=== PATIENT | female | born 1995 | race Caucasian/White ===

== ENCOUNTER → 2018-01-20 | Outpatient (CLI) | payer BC, OTHER ==
--- NOTE | 2018-01-20 09:36 | US ---
EXAMINATION TYPE: US pelvic complete DATE OF EXAM: 01/20/2018 COMPARISON: NONE CLINICAL HISTORY: 22-year-old female R31.9 Hematuria. Intermittent pelvic cramping x couple months, h istory of kidney stones, history of ovarian cysts, on control, 0 TECHNIQUE: Transabdominal sonographic images of the pelvis were acquired. Date of LMP: Unknown Findings: Uterus: Anteverted measuring 6.4 x 2.7 x 3.4 cm. Somewhat bulky, rounded appearance to the cervix/low er uterine segment. Endometrial Stripe: 0.4 cm Right Ovary: 2.4 x 1.5 x 2.2 cm Left Ovary: 2.7 x 1.6 x 2.7 cm Normal size ovaries with follicular change. No evident adnexal abnormality or cul-de-sac free fluid. IMPRESSION: 1. Somewhat bulky, rounded appearance to the cervix/lower uterine segment on transabdominal scanning. Consider follow-up transvaginal scanning for more detailed assessment of the cervix. Alternatively, consider direct visualization and Pap smear. 2. Otherwise, no specific abnormality seen.
--- NOTE | 2018-01-20 10:39 | US ---
EXAMINATION TYPE: US abdomen complete DATE OF EXAM: 01/20/2018 COMPARISON: NONE CLINICAL HISTORY: 22-year-old female R31.9 Hematuria. Hematuria, intermittent pelvic cramping x coupl e months, history of kidney stones Technique: Multiple sonographic images of the abdomen are obtained. FINDINGS: Liver Length: 13.2 cm Gallbladder Wall: 0.2 cm CBD: 0.4 cm Spleen: 9.5 cm Right Kidney: 10.0 x 5.3 x 4.3 cm Left Kidney: 9.6 x 5.6 x 4.9 cm Pancreas: Only a small portion of the pancreatic neck is seen and shows no gross anomaly. Remainder suboptimally visualized secondary to shadowing from bowel gas. Liver: Normal size with homogeneous echotexture. No focal lesion. Gallbladder: wnl Evidence for sonographic Anne's sign: no CBD: wnl Spleen: visualized portions wnl, limited by overlying bowel gas Right Kidney: multiple tiny echogenic foci scattered throughout measuring up to 4 mm. No hydroneph rosis. Left Kidney: multiple tiny echogenic foci scattered throughout measuring up to 4 mm. No hydronephro sis. Upper IVC: wnl Abd Aorta: wnl IMPRESSION: 1. Suboptimal visualization of the pancreas. 2. Scattered echogenic foci within both kidneys could represent tiny nonobstructive calculi. Prominen t vascular reflectors are also possible. No hydronephrosis.
== END | disposition home or self-care (01) ==
LOC: RADUSWWP 08:03
PROVIDERS: ATTEND Pediatrics
DX: R93.421 Abnormal radiologic findings on diagnostic imaging of right kidney (principal); R93.422 Abnormal radiologic findings on diagnostic imaging of left kidney; R31.9 Hematuria, unspecified
CPT/HCPCS: 76700; 76856

== ENCOUNTER 2018-12-30 11:37 | Emergency (ER) | payer BC, OTHER ==
[2018-12-30] MEDS ORDERED: SODIUM CHLORIDE 0.9% 2,000 ML IV STA (12:01)
[2018-12-30] MEDS ORDERED: ONDANSETRON 4 MG/2 ML VIAL IVP STA (12:01)
[2018-12-30 12:40] LABS: Basophils % (A) 0 %; Eosinophils % (A) 0 %; HGB 14.8 gm/dL (11.4-16.0); Lymphocytes # (A) 0.9 k/uL (1.0-4.8); Lymphocytes % (A) 8 %; MCH 29.5 pg (25.0-35.0); MCHC 34.5 g/dL (31.0-37.0); MCV 85.5 fL (80.0-100.0); Mean Platelet Volume 6.3; Monocytes # (A) 0.5 k/uL (0-1.0); Monocytes % (A) 4 %; Neutrophils # (A) 10.5 k/uL (1.3-7.7); Neutrophils % (A) 87 %; Platelet Count 296 k/uL (150-450); RBC 5.03 m/uL (3.80-5.40); RDW 13.3 % (11.5-15.5)
[2018-12-30 12:50] LABS: ALT 30 U/L (9-52); AST 28 U/L (14-36); Albumin 4.4 g/dL (3.5-5.0); Alkaline Phosphatase 42 U/L (38-126); Anion Gap 13 mmol/L; Blood Urea Nitrogen 13 mg/dL (7-17); Calcium 9.7 mg/dL (8.4-10.2); Carbon Dioxide 22 mmol/L (22-30); Chloride 104 mmol/L (98-107); Glucose 82 mg/dL (74-99); Lipase 170 U/L (23-300); Potassium 4.2 mmol/L (3.5-5.1); Sodium 139 mmol/L (137-145); Total Bilirubin 0.7 mg/dL (0.2-1.3); Total Protein 7.5 g/dL (6.3-8.2)
--- NOTE | 2018-12-30 13:51 | US ---
EXAMINATION TYPE: Transabdominal DATE OF EXAM: 03/01/18 COMPARISON: NONE CLINICAL HISTORY: Pain. vomiting, no spotting, possible dehydration. Positive hCG test. EXAM PERFORMED: Transabdominal (TA) EXAM MEASUREMENTS: GESTATIONAL AGE / DATING Dates by LMP: (9 weeks/5 days) EDC: 07/30/2019 Dates by Current Scan: ( 9 weeks/3 days) EDC: 08/01/2019 MATERNAL ANATOMY Uterus: 8.9 x 7.8 x 5.9 cm Right Ovary: 2.4 x 1.4 x 1.5 cm Left Ovary: 2.3 x 1.3 x 1.1 cm Post CDS / Adnexa: no free fluid Presence of free fluid: no Presence of corpus luteal cyst: no Presence of subchorionic bleed: no GESTATION / SURVEY CRL: 2.7 cm (9 weeks/3 days) MSD: seen not measured Yolk Sac (normal less than 6mm): 3.9mm Heart Rate: 178 bpm Rhythm: Normal IUP: Viable IUP Date of LMP: 10/23/2018, G1 Beta HcG (if available): Not available at this time Single live intrauterine gestation is confirmed as gestational sac, yolk sac, pole are identifi ed. heart rate is upper limits of normal. No free fluid is seen in pelvic cul-de-sac. Both ovaries are seen. No suspicious extraovarian adnexal masses are noted. IMPRESSION: Single live intrauterine gestation is confirmed, mean crown-rump length is 2.7 cm corresponding to 9 week 3 day old fetus.
--- NOTE | 2018-12-30 13:55 | ED ---
Nausea/Vomiting/Diarrhea HPI <Jonny Metzger - Last Filed: 12/30/18 15:44> - General Source: patient, RN notes reviewed Mode of arrival: ambulatory Limitations: no limitations <Crow Benitez - Last Filed: 12/30/18 15:46> - General Chief complaint: Nausea/Vomiting/Diarrhea Stated complaint: 9 1/2 WEEKS , NAUSEA, VOMITING Time Seen by Provider: 12/30/18 11:48 - History of Present Illness Initial comments: 23-year-old female presents emergency Department with chief complaint of nausea vomiting in . Patient states she's approximately 9 weeks , A0. Patient states that she is scheduled to see Dr. Ko She did see the nurse initially and has had ongoing nausea vomiting given Zofran but states that the last 2 days have been worse. She states she feels dehydrated. Denies any vaginal bleeding or vaginal discharge. Denies any abdominal pain. She's had no prior ultrasound with did show intrauterine . (Crow Benitez) - Related Data Home Medications Medication Instructions Recorded Confirmed Loratadine [Claritin] 10 mg PO DAILY 12/30/18 12/30/18 Ondansetron [Zofran] 4 mg PO Q8H PRN 12/30/18 12/30/18 Pnv,Calcium 72/Iron/Folic Acid 1 tab PO DAILY 12/30/18 12/30/18 [ Plus Tablet] Allergies Allergy/AdvReac Type Severity Reaction Status Date / Time venlafaxine [From Effexor] AdvReac dizziness Verified 12/30/18 11:57 Review of Systems ROS Other: All systems not noted in ROS Statement are negative. <Jonny Metzger - Last Filed: 12/30/18 15:44> ROS Other: All systems not noted in ROS Statement are negative. <Crow Benitez - Last Filed: 12/30/18 15:46> ROS Statement: Those systems with pertinent positive or pertinent negative responses have been documented in the HPI. Past Medical History Past Medical History: No Reported History History of Any Multi-Drug Resistant Organisms: None Reported Past Surgical History: No Surgical Hx Reported Past Psychological History: No Psychological Hx Reported Smoking Status: Never smoker Past Alcohol Use History: Rare Past Drug Use History: None Reported <Crow Benitez - Last Filed: 12/30/18 15:46> General Exam Limitations: no limitations General appearance: alert, in no apparent distress Head exam: Present: atraumatic, normocephalic, normal inspection Eye exam: Present: normal appearance, PERRL, EOMI. Absent: scleral icterus, conjunctival injection, periorbital swelling ENT exam: Present: normal exam, normal oropharynx, mucous membranes moist Neck exam: Present: normal inspection, full ROM. Absent: tenderness, meningismus, lymphadenopathy Respiratory exam: Present: normal lung sounds bilaterally. Absent: respiratory distress, wheezes, rales, rhonchi, stridor Cardiovascular Exam: Present: regular rate, normal rhythm, normal heart sounds. Absent: systolic murmur, diastolic murmur, rubs, gallop, clicks GI/Abdominal exam: Present: soft, tenderness, normal bowel sounds. Absent: distended, guarding, rebound, rigid Back exam: Absent: CVA tenderness (R), CVA tenderness (L) Neurological exam: Present: alert, oriented X3, CN II-XII intact Skin exam: Present: warm, dry, intact, normal color. Absent: rash <Crow Benitez - Last Filed: 12/30/18 15:46> Course <Jonny Metzger - Last Filed: 12/30/18 15:44> <Crow Benitez - Last Filed: 12/30/18 15:46> Vital Signs 12/30/18 12/30/18 12/30/18 11:52 14:25 15:40 Temperature 97.8 F Pulse Rate 89 82 79 Respiratory 18 16 16 Rate Blood Pressure 113/79 108/59 100/64 O2 Sat by Pulse 97 100 99 Oximetry - Reevaluation(s) Reevaluation #1: 12/30/18 15:44 Patient reevaluated by myself, Dr. Metzger. Patient resting comfortably in bed. Patient has been hydrated. Patient is able to tolerate crackers in the emergency department. (Jonny Metzger) Medical Decision Making - Lab Data Result diagrams: 12/30/18 12:23 12/30/18 12:23 <Jonny Metzger - Last Filed: 12/30/18 15:44> - Lab Data Result diagrams: 12/30/18 12:23 12/30/18 12:23 <Crow Benitez - Last Filed: 12/30/18 15:46> - Medical Decision Making 23-year-old female presented for nausea vomiting early . Patient was hydrated, given antiemetics. She has tolerated oral intake will be discharged with close follow-up with her GENERALIST. (Crow Benitez) - Lab Data Lab Results 12/30/18 12/30/18 12/30/18 Range/Units 12:23 12:23 12:23 WBC 12.0 H (3.8-10.6) k/uL RBC 5.03 (3.80-5.40) m/uL Hgb 14.8 (11.4-16.0) gm/dL Hct 43.0 (34.0-46.0) % MCV 85.5 (80.0-100.0) fL MCH 29.5 (25.0-35.0) pg MCHC 34.5 (31.0-37.0) g/dL RDW 13.3 (11.5-15.5) % Plt Count 296 (150-450) k/uL Neutrophils % 87 % Lymphocytes % 8 % Monocytes % 4 % Eosinophils % 0 % Basophils % 0 % Neutrophils # 10.5 H (1.3-7.7) k/uL Lymphocytes # 0.9 L (1.0-4.8) k/uL Monocytes # 0.5 (0-1.0) k/uL Eosinophils # 0.0 (0-0.7) k/uL Basophils # 0.0 (0-0.2) k/uL Sodium 139 (137-145) mmol/L Potassium 4.2 (3.5-5.1) mmol/L Chloride 104 (98-107) mmol/L Carbon Dioxide 22 (22-30) mmol/L Anion Gap 13 mmol/L BUN 13 (7-17) mg/dL Creatinine 0.45 L (0.52-1.04) mg/dL Est GFR (CKD-EPI)AfAm >90 (>60 ml/min/1.73 sqM) Est GFR (CKD-EPI)NonAf >90 (>60 ml/min/1.73 sqM) Glucose 82 (74-99) mg/dL Calcium 9.7 (8.4-10.2) mg/dL Total Bilirubin 0.7 (0.2-1.3) mg/dL AST 28 (14-36) U/L ALT 30 (9-52) U/L Alkaline Phosphatase 42 (38-126) U/L Total Protein 7.5 (6.3-8.2) g/dL Albumin 4.4 (3.5-5.0) g/dL Lipase 170 (23-300) U/L Urine Color Urine Appearance (Clear) Urine pH (5.0-8.0) Ur Specific [place] (1.001-1.035) Urine Protein (Negative) Urine Glucose (UA) (Negative) Urine Ketones (Negative) Urine Blood (Negative) Urine Nitrite (Negative) Urine Bilirubin (Negative) Urine Urobilinogen (<2.0) mg/dL Ur Leukocyte Esterase (Negative) Urine RBC (0-5) /hpf Urine WBC (0-5) /hpf Ur Squamous Epith Cells (0-4) /hpf Amorphous Sediment (None) /hpf Urine Bacteria (None) /hpf Hyaline Casts (0-2) /lpf Urine Mucus (None) /hpf Urine HCG, Qual (Not Detectd) Blood Type B Negative Blood Type Recheck No 12/30/18 12/30/18 Range/Units 13:43 13:43 WBC (3.8-10.6) k/uL RBC (3.80-5.40) m/uL Hgb (11.4-16.0) gm/dL Hct (34.0-46.0) % MCV (80.0-100.0) fL MCH (25.0-35.0) pg MCHC (31.0-37.0) g/dL RDW (11.5-15.5) % Plt Count (150-450) k/uL Neutrophils % % Lymphocytes % % Monocytes % % Eosinophils % % Basophils % % Neutrophils # (1.3-7.7) k/uL Lymphocytes # (1.0-4.8) k/uL Monocytes # (0-1.0) k/uL Eosinophils # (0-0.7) k/uL Basophils # (0-0.2) k/uL Sodium (137-145) mmol/L Potassium (3.5-5.1) mmol/L Chloride (98-107) mmol/L Carbon Dioxide (22-30) mmol/L Anion Gap mmol/L BUN (7-17) mg/dL Creatinine (0.52-1.04) mg/dL Est GFR (CKD-EPI)AfAm (>60 ml/min/1.73 sqM) Est GFR (CKD-EPI)NonAf (>60 ml/min/1.73 sqM) Glucose (74-99) mg/dL Calcium (8.4-10.2) mg/dL Total Bilirubin (0.2-1.3) mg/dL AST (14-36) U/L ALT (9-52) U/L Alkaline Phosphatase (38-126) U/L Total Protein (6.3-8.2) g/dL Albumin (3.5-5.0) g/dL Lipase (23-300) U/L Urine Color Yellow Urine Appearance Cloudy H (Clear) Urine pH 6.0 (5.0-8.0) Ur Specific [place] 1.028 (1.001-1.035) Urine Protein 1+ H (Negative) Urine Glucose (UA) Negative (Negative) Urine Ketones 4+ H (Negative) Urine Blood Negative (Negative) Urine Nitrite Negative (Negative) Urine Bilirubin Negative (Negative) Urine Urobilinogen <2.0 (<2.0) mg/dL Ur Leukocyte Esterase Small H (Negative) Urine RBC 2 (0-5) /hpf Urine WBC 20 H (0-5) /hpf Ur Squamous Epith Cells 1 (0-4) /hpf Amorphous Sediment Occasional H (None) /hpf Urine Bacteria Occasional H (None) /hpf Hyaline Casts 5 H (0-2) /lpf Urine Mucus Many H (None) /hpf Urine HCG, Qual Detected (Not Detectd) Blood Type Blood Type Recheck Disposition <Jonny Metzger - Last Filed: 12/30/18 15:44> Is patient prescribed a controlled substance at d/c from ED?: No Time of Disposition: 15:46 <Crow Benitez - Last Filed: 12/30/18 15:46> Clinical Impression: Dehydration, Hyperemesis gravidarum Disposition: HOME SELF-CARE Condition: Stable Instructions (If sedation given, give patient instructions): Acute Nausea and Vomiting (ED) Additional Instructions: Please return to the Emergency Department if symptoms worsen or any other concerns. Referrals: Angelo Gilbert MD [Primary Care Provider] - 1-2 days
[2018-12-30] MEDS ORDERED: METOCLOPRAMIDE 5 MG/ML 2 ML VIAL IVP STA (14:16)
[2018-12-30] MEDS ORDERED: diphenhydrAMINE 50 MG/ML 1 ML VIAL IVP STA (14:16)
[2018-12-30 14:27] VITALS: RESP 16
[2018-12-30 14:38] LABS: Amorphous Sediment,Urine Occasional /hpf; Appearance,Urine Cloudy (Clear); Bacteria,Urine Occasional /hpf; Bilirubin,Urine Negative (Negative); Blood,Urine Negative (Negative); Color,Urine Yellow; Glucose,Urine (UA) Negative (Negative); Hyaline Casts,Urine 5 /lpf (0-2); Ketones,Urine 4+ (Negative); Leukocyte Esterase,Urine Small (Negative); Mucus,Urine Many /hpf; Nitrite,Urine Negative (Negative); Protein,Urine 1+ (Negative); RBC,Urine 2 /hpf (0-5); Specific Gravity,Urine 1.028 (1.001-1.035); Squamous Epithelial Cell,Urine 1 /hpf (0-4); Urobilinogen,Urine <2.0 mg/dL (<2.0); WBC,Urine 20 /hpf (0-5)
[2018-12-30] MEDS ORDERED: SODIUM CHLORIDE 0.9% 1,000 ML IV ONE (14:56)
[2018-12-30 17:12] VITALS: BP 103/66; PULSE 90; TEMP 98.9
== END 2018-12-30 17:20 | disposition home or self-care (01) ==
LOC: EC 11:37
DX: O21.1 Hyperemesis gravidarum with metabolic disturbance (principal); Z3A.09 9 weeks gestation of pregnancy; Z79.899 Other long term (current) drug therapy; Z88.8 Allergy status to other drugs, medicaments and biological substances
CPT/HCPCS: 36415; 86900; 86901; 80053; 83690; 85025; 81001; 81025; 87086; 76801; 99284; 96365; 96375 ×3; 96361 ×2; J1200; J2765; J2405; J0696

== ENCOUNTER 2018-12-31 18:09 | Emergency (ER) | payer BC, OTHER ==
[2018-12-31 18:20] VITALS: TEMP 98.5
[2018-12-31] MEDS ORDERED: METOCLOPRAMIDE 5 MG/ML 2 ML VIAL IVP STA (18:40)
[2018-12-31] MEDS ORDERED: SODIUM CHLORIDE 0.9% 2,000 ML IV STA (18:40)
[2018-12-31] MEDS ORDERED: SODIUM CHLORIDE 0.9% 1,000 ML IV STA (18:40)
[2018-12-31] MEDS ORDERED: diphenhydrAMINE 50 MG/ML 1 ML VIAL IVP STA (18:40)
--- NOTE | 2018-12-31 19:17 | ED ---
Nausea/Vomiting/Diarrhea HPI - General Chief complaint: Nausea/Vomiting/Diarrhea Stated complaint: 10 WEEKS PREG AND NAUSEA Time Seen by Provider: 12/31/18 18:40 Source: patient, RN notes reviewed Mode of arrival: ambulatory Limitations: no limitations - History of Present Illness Initial comments: 23-year-old female presents emergency department for nausea vomiting and urinary tract infection. Patient was seen here in emergency department yesterday was found be severely dehydrated. She states she is able to go home and eat but states that she started vomiting a few hours after. She has not been unable to keep anything down today. Patient does not clinic fevers or chills. Patient states she is approximately 10 weeks . Patient denies any vaginal bleeding or vaginal discharge. Patient's PHOTOGRAPHY INTERN is Dr. Ko. Patient has not had an official appointment with her that she's had an appointment with the nurse. Patient was given Zofran at PHOTOGRAPHY INTERN office. Patient states that she has diffuse burning of her throat. - Related Data Home Medications Medication Instructions Recorded Confirmed Loratadine [Claritin] 10 mg PO DAILY 12/30/18 12/30/18 Ondansetron [Zofran] 4 mg PO Q8H PRN 12/30/18 12/30/18 Pnv,Calcium 72/Iron/Folic Acid 1 tab PO DAILY 12/30/18 12/30/18 [ Plus Tablet] Previous Rx's Medication Instructions Recorded Metoclopramide [Reglan] 10 mg PO TID PRN #15 tab 12/31/18 Nitrofurantoin Monohyd/M-Cryst 100 mg PO Q12HR #10 cap 12/31/18 [Macrobid] Promethazine HCl [Phenergan] 50 mg RC Q8HR #10 supp.rect 12/31/18 Allergies Allergy/AdvReac Type Severity Reaction Status Date / Time venlafaxine [From Effexor] AdvReac dizziness Verified 12/31/18 18:16 Review of Systems ROS Statement: Those systems with pertinent positive or pertinent negative responses have been documented in the HPI. ROS Other: All systems not noted in ROS Statement are negative. Past Medical History Past Medical History: No Reported History History of Any Multi-Drug Resistant Organisms: None Reported Past Surgical History: No Surgical Hx Reported Additional Past Surgical History / Comment(s): oral surgery Past Psychological History: Anxiety, Depression Smoking Status: Never smoker Past Alcohol Use History: None Reported Past Drug Use History: None Reported General Exam Limitations: no limitations General appearance: alert, in no apparent distress Head exam: Present: atraumatic, normocephalic, normal inspection Neck exam: Present: normal inspection. Absent: tenderness, meningismus, lymphadenopathy Respiratory exam: Present: normal lung sounds bilaterally. Absent: respiratory distress, wheezes, rales, rhonchi, stridor Cardiovascular Exam: Present: regular rate, normal rhythm, normal heart sounds. Absent: systolic murmur, diastolic murmur, rubs, gallop, clicks GI/Abdominal exam: Present: soft, normal bowel sounds. Absent: distended, tenderness, guarding, rebound, rigid Back exam: Absent: CVA tenderness (R), CVA tenderness (L) Skin exam: Present: warm, dry, intact, normal color. Absent: rash Course Vital Signs 12/31/18 12/31/18 18:16 20:52 Temperature 98.5 F Pulse Rate 98 77 Respiratory 18 16 Rate Blood Pressure 124/85 104/65 O2 Sat by Pulse 99 99 Oximetry Medical Decision Making - Medical Decision Making 31-year-old female presents emergency department for nausea and vomiting in . Patient has questional urinary tract infection. Case discussed with on-call PHOTOGRAPHY INTERN Dr. Hector recommends patient be discharged with Tigan suppositories. Patient was seen yesterday with 4+ ketones, patient did have 3 L of fluid yesterday. Patient has 3+ ketones today was given 3 L of fluid. Patient still remains to be nauseated but agrees to go home under Dr. Hector's plan. I did discuss with pharmacy about Tigan suppositories. No availability of this. Patient we given oral Reglan and Phenergan suppositories - Lab Data Result diagrams: 12/31/18 19:00 12/31/18 19:00 Lab Results 12/31/18 12/31/18 12/31/18 Range/Units 19:00 19:00 19:02 WBC 9.5 (3.8-10.6) k/uL RBC 4.79 (3.80-5.40) m/uL Hgb 13.9 (11.4-16.0) gm/dL Hct 41.1 (34.0-46.0) % MCV 85.9 (80.0-100.0) fL MCH 29.0 (25.0-35.0) pg MCHC 33.8 (31.0-37.0) g/dL RDW 13.4 (11.5-15.5) % Plt Count 280 (150-450) k/uL Neutrophils % 77 % Lymphocytes % 16 % Monocytes % 6 % Eosinophils % 1 % Basophils % 0 % Neutrophils # 7.3 (1.3-7.7) k/uL Lymphocytes # 1.5 (1.0-4.8) k/uL Monocytes # 0.5 (0-1.0) k/uL Eosinophils # 0.1 (0-0.7) k/uL Basophils # 0.0 (0-0.2) k/uL Sodium 138 (137-145) mmol/L Potassium 3.8 (3.5-5.1) mmol/L Chloride 106 (98-107) mmol/L Carbon Dioxide 22 (22-30) mmol/L Anion Gap 10 mmol/L BUN 4 L (7-17) mg/dL Creatinine 0.50 L (0.52-1.04) mg/dL Est GFR (CKD-EPI)AfAm >90 (>60 ml/min/1.73 sqM) Est GFR (CKD-EPI)NonAf >90 (>60 ml/min/1.73 sqM) Glucose 77 (74-99) mg/dL Calcium 9.4 (8.4-10.2) mg/dL Total Bilirubin 0.7 (0.2-1.3) mg/dL AST 22 (14-36) U/L ALT 30 (9-52) U/L Alkaline Phosphatase 37 L (38-126) U/L Total Protein 7.3 (6.3-8.2) g/dL Albumin 4.4 (3.5-5.0) g/dL Lipase 173 (23-300) U/L Urine Color Yellow Urine Appearance Cloudy H (Clear) Urine pH 5.5 (5.0-8.0) Ur Specific [place] 1.012 (1.001-1.035) Urine Protein Negative (Negative) Urine Glucose (UA) Negative (Negative) Urine Ketones 3+ H (Negative) Urine Blood Trace H (Negative) Urine Nitrite Negative (Negative) Urine Bilirubin Negative (Negative) Urine Urobilinogen <2.0 (<2.0) mg/dL Ur Leukocyte Esterase Large H (Negative) Urine RBC 6 H (0-5) /hpf Urine WBC 13 H (0-5) /hpf Ur Squamous Epith Cells 5 H (0-4) /hpf Urine Bacteria Many H (None) /hpf Urine Mucus Occasional H (None) /hpf Disposition Clinical Impression: Dehydration, Hyperemesis gravidarum, UTI (urinary tract infection) Disposition: HOME SELF-CARE Condition: Stable Instructions (If sedation given, give patient instructions): Hyperemesis Gravidarum (ED) Additional Instructions: Please return to the Emergency Department if symptoms worsen or any other concerns. Prescriptions: Metoclopramide [Reglan] 10 mg PO TID PRN #15 tab PRN Reason: GERD Nitrofurantoin Monohyd/M-Cryst [Macrobid] 100 mg PO Q12HR #10 cap Promethazine HCl [Phenergan] 50 mg RC Q8HR #10 supp.rect Is patient prescribed a controlled substance at d/c from ED?: No Referrals: Angelo Gilbert MD [Primary Care Provider] - 1-2 days Time of Disposition: 21:16
[2018-12-31 19:39] LABS: Basophils % (A) 0 %; Eosinophils # (A) 0.1 k/uL (0-0.7); Eosinophils % (A) 1 %; HCT 41.1 % (34.0-46.0); HGB 13.9 gm/dL (11.4-16.0); Lymphocytes # (A) 1.5 k/uL (1.0-4.8); Lymphocytes % (A) 16 %; MCHC 33.8 g/dL (31.0-37.0); MCV 85.9 fL (80.0-100.0); Mean Platelet Volume 6.9; Monocytes # (A) 0.5 k/uL (0-1.0); Monocytes % (A) 6 %; Neutrophils # (A) 7.3 k/uL (1.3-7.7); Neutrophils % (A) 77 %; Platelet Count 280 k/uL (150-450); RBC 4.79 m/uL (3.80-5.40); RDW 13.4 % (11.5-15.5); WBC 9.5 k/uL (3.8-10.6)
[2018-12-31 19:40] LABS: Appearance,Urine Cloudy (Clear); Bacteria,Urine Many /hpf; Bilirubin,Urine Negative (Negative); Blood,Urine Trace (Negative); Color,Urine Yellow; Glucose,Urine (UA) Negative (Negative); Ketones,Urine 3+ (Negative); Leukocyte Esterase,Urine Large (Negative); Mucus,Urine Occasional /hpf; Nitrite,Urine Negative (Negative); PH, Urine 5.5 (5.0-8.0); Protein,Urine Negative (Negative); RBC,Urine 6 /hpf (0-5); Specific Gravity,Urine 1.012 (1.001-1.035); Squamous Epithelial Cell,Urine 5 /hpf (0-4); Urobilinogen,Urine <2.0 mg/dL (<2.0); WBC,Urine 13 /hpf (0-5)
[2018-12-31 19:43] LABS: ALT 30 U/L (9-52); AST 22 U/L (14-36); Albumin 4.4 g/dL (3.5-5.0); Alkaline Phosphatase 37 U/L (38-126); Anion Gap 10 mmol/L; Blood Urea Nitrogen 4 mg/dL (7-17); Calcium 9.4 mg/dL (8.4-10.2); Carbon Dioxide 22 mmol/L (22-30); Chloride 106 mmol/L (98-107); Glucose 77 mg/dL (74-99); Lipase 173 U/L (23-300); Potassium 3.8 mmol/L (3.5-5.1); Sodium 138 mmol/L (137-145); Total Bilirubin 0.7 mg/dL (0.2-1.3); Total Protein 7.3 g/dL (6.3-8.2)
[2018-12-31 20:54] VITALS: RESP 16
[2018-12-31] MEDS ORDERED: ONDANSETRON 4 MG/2 ML VIAL IVP STA (21:02)
[2018-12-31] MEDS ORDERED: SODIUM CHLORIDE 0.9% 1,000 ML IV ONE (21:03)
[2018-12-31 22:22] VITALS: BP 109/70; PULSE 84
== END 2018-12-31 22:18 | disposition home or self-care (01) ==
LOC: EC 18:09
DX: O23.41 Unspecified infection of urinary tract in pregnancy, first trimester (principal); O21.1 Hyperemesis gravidarum with metabolic disturbance; Z79.899 Other long term (current) drug therapy; Z88.8 Allergy status to other drugs, medicaments and biological substances; Z3A.10 10 weeks gestation of pregnancy
CPT/HCPCS: 36415; 80053; 83690; 85025; 81001; 99284; 96365; 96375 ×3; 96361 ×2; J1200; J2765; J2405; J0696

== ENCOUNTER 2019-01-05 15:10 | Emergency (ER) | payer BC, OTHER ==
[2019-01-05 15:23] VITALS: RESP 20; TEMP 97.9
[2019-01-05] MEDS ORDERED: METOCLOPRAMIDE 5 MG/ML 2 ML VIAL IVP STA ×2 (15:46→17:44)
[2019-01-05] MEDS ORDERED: SODIUM CHLORIDE 0.9% 2,000 ML IV STA (15:46)
[2019-01-05] MEDS ORDERED: diphenhydrAMINE 50 MG/ML 1 ML VIAL IVP STA (15:46)
--- NOTE | 2019-01-05 15:47 | ED ---
General Adult HPI <Kelton Joel - Last Filed: 01/05/19 17:41> - General Source: patient, RN notes reviewed Mode of arrival: ambulatory Limitations: no limitations <Deven Robles - Last Filed: 01/05/19 20:37> - General Chief complaint: Nausea/Vomiting/Diarrhea Stated complaint: nausea/UTI/10wks preg Time Seen by Provider: 01/05/19 15:30 - History of Present Illness Initial comments: 23-year-old female currently 10 weeks presents to the emergency department for a chief complaint of nausea and vomiting. Patient states she has vomiting multiple times today. Patient presented to the emergency department 5 days ago and received oral medications as well as suppository for this. Patient states that for the past few days she has felt much better. She states she was keeping down solids and liquids. However last night patient began throwing up again. Patient has thrown up multiple times today. Patient was recently diagnosed with a urinary tract infection and is unable to keep down antibiotic. 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 Patient sees Dr. Ko. patient did attempt to contact her today but was unsuccessful. patient denies any vaginal bleeding Or pain. Patient has no other complaints at this time including shortness of breath, chest pain, abdominal pain, headache, or visual changes. (Deven Robles) - Related Data Home Medications Medication Instructions Recorded Confirmed Loratadine [Claritin] 10 mg PO DAILY 12/30/18 01/05/19 Ondansetron [Zofran] 4 mg PO Q8H PRN 12/30/18 01/05/19 Pnv,Calcium 72/Iron/Folic Acid 1 tab PO DAILY 12/30/18 01/05/19 [ Plus Tablet] Previous Rx's Medication Instructions Recorded Metoclopramide [Reglan] 10 mg PO TID PRN #15 tab 12/31/18 Nitrofurantoin Monohyd/M-Cryst 100 mg PO Q12HR #10 cap 12/31/18 [Macrobid] Metoclopramide HCl [Reglan] 10 mg PO Q6H #15 tablet 01/05/19 Allergies Allergy/AdvReac Type Severity Reaction Status Date / Time venlafaxine [From Effexor] AdvReac dizziness Verified 01/05/19 16:08 Review of Systems ROS Other: All systems not noted in ROS Statement are negative. <Kelton Joel - Last Filed: 01/05/19 17:41> ROS Other: All systems not noted in ROS Statement are negative. <Deven Robles - Last Filed: 01/05/19 20:37> ROS Statement: Those systems with pertinent positive or pertinent negative responses have been documented in the HPI. Past Medical History Past Medical History: No Reported History History of Any Multi-Drug Resistant Organisms: None Reported Past Surgical History: No Surgical Hx Reported Additional Past Surgical History / Comment(s): oral surgery Past Psychological History: Anxiety, Depression Smoking Status: Never smoker Past Alcohol Use History: None Reported Past Drug Use History: None Reported <Deven Robles - Last Filed: 01/05/19 20:37> General Exam Limitations: no limitations General appearance: alert, in no apparent distress Head exam: Present: atraumatic, normocephalic, normal inspection Eye exam: Present: normal appearance, PERRL, EOMI. Absent: scleral icterus, conjunctival injection, periorbital swelling ENT exam: Present: normal exam, mucous membranes moist Neck exam: Present: normal inspection, full ROM. Absent: tenderness, meningismus, lymphadenopathy Respiratory exam: Present: normal lung sounds bilaterally. Absent: respiratory distress, wheezes, rales, rhonchi, stridor Cardiovascular Exam: Present: regular rate, normal rhythm, normal heart sounds. Absent: systolic murmur, diastolic murmur, rubs, gallop, clicks GI/Abdominal exam: Present: soft, normal bowel sounds. Absent: distended, tenderness, guarding, rebound, rigid Neurological exam: Present: alert, oriented X3, CN II-XII intact Psychiatric exam: Present: normal affect, normal mood <Deven Robles P - Last Filed: 01/05/19 20:37> Course <Kelton Joel - Last Filed: 01/05/19 17:41> <Deven Robles P - Last Filed: 01/05/19 20:37> Vital Signs 01/05/19 01/05/19 01/05/19 15:19 17:22 17:55 Temperature 97.9 F 97.9 F Pulse Rate 101 H 89 Respiratory 20 20 Rate Blood Pressure 138/86 118/72 O2 Sat by Pulse 96 99 Oximetry - Reevaluation(s) Reevaluation #1: 01/05/19 17:41 JOSH supervision: I proceeded [id number] evaluation the patient he currently is with her first child this is her third visit last week for nausea vomiting she was doing well yesterday she is feeling better now after IV Reglan. She'll be discharged on increasing frequency of dosing this is after discussion with her and at her request. Patient be following up as needed (Kelton Joel) Medical Decision Making - Lab Data Result diagrams: 01/05/19 15:32 01/05/19 15:32 <Kelton Joel - Last Filed: 01/05/19 17:41> - Lab Data Result diagrams: 01/05/19 15:32 01/05/19 15:32 <Deven Robles - Last Filed: 01/05/19 20:37> - Medical Decision Making 23-year-old female presents to the emergency department for a chief complaint of nausea and vomiting. Patient is 10 weeks . Patient is a female. Patient was given medications here at the emergency department 5 days ago. She states these worked for the past 4 days however last night she began vomiting again and has vomited multiple times per day. Urinalysis does show 4+ ketones, patient given 2 L of fluids. However kidney function and other labs are within normal limits. Culture from previous urinalysis was negative. Patient is well-appearing on exam. She is much improved after IV administration. She has not vomited while in the emergency department. Patient is currently on oral Reglan. Discussed increasing dose to 4 times per day. Patient will try this. However she does agree to return if she has continued vomiting and is unable to keep down liquids. Dr. Joel also saw the patient. (Deven Robles) - Lab Data Lab Results 01/05/19 01/05/19 01/05/19 Range/Units 15:32 15:32 15:32 WBC 12.0 H (3.8-10.6) k/uL RBC 5.08 (3.80-5.40) m/uL Hgb 14.6 (11.4-16.0) gm/dL Hct 44.0 (34.0-46.0) % MCV 86.5 (80.0-100.0) fL MCH 28.7 (25.0-35.0) pg MCHC 33.2 (31.0-37.0) g/dL RDW 13.5 (11.5-15.5) % Plt Count 286 (150-450) k/uL Neutrophils % 81 % Lymphocytes % 13 % Monocytes % 4 % Eosinophils % 1 % Basophils % 0 % Neutrophils # 9.8 H (1.3-7.7) k/uL Lymphocytes # 1.6 (1.0-4.8) k/uL Monocytes # 0.5 (0-1.0) k/uL Eosinophils # 0.1 (0-0.7) k/uL Basophils # 0.0 (0-0.2) k/uL Sodium 137 (137-145) mmol/L Potassium 4.0 (3.5-5.1) mmol/L Chloride 103 (98-107) mmol/L Carbon Dioxide 22 (22-30) mmol/L Anion Gap 12 mmol/L BUN 10 (7-17) mg/dL Creatinine 0.47 L (0.52-1.04) mg/dL Est GFR (CKD-EPI)AfAm >90 (>60 ml/min/1.73 sqM) Est GFR (CKD-EPI)NonAf >90 (>60 ml/min/1.73 sqM) Glucose 77 (74-99) mg/dL Calcium 9.9 (8.4-10.2) mg/dL Total Bilirubin 0.6 (0.2-1.3) mg/dL AST 27 (14-36) U/L ALT 28 (9-52) U/L Alkaline Phosphatase 42 (38-126) U/L Total Protein 7.8 (6.3-8.2) g/dL Albumin 4.8 (3.5-5.0) g/dL Amylase 87 (30-110) U/L Lipase 222 (23-300) U/L HCG, Quant 979326.0 mIU/mL Urine Color Yellow Urine Appearance Cloudy H (Clear) Urine pH 5.5 (5.0-8.0) Ur Specific [place] 1.025 (1.001-1.035) Urine Protein Trace H (Negative) Urine Glucose (UA) Negative (Negative) Urine Ketones 4+ H (Negative) Urine Blood Small H (Negative) Urine Nitrite Negative (Negative) Urine Bilirubin Negative (Negative) Urine Urobilinogen <2.0 (<2.0) mg/dL Ur Leukocyte Esterase Trace H (Negative) Urine RBC 6 H (0-5) /hpf Urine WBC 5 (0-5) /hpf Ur Squamous Epith Cells 8 H (0-4) /hpf Urine Bacteria Moderate H (None) /hpf Urine Mucus Many H (None) /hpf Disposition <Kelton Joel - Last Filed: 01/05/19 17:41> Is patient prescribed a controlled substance at d/c from ED?: No Time of Disposition: 17:42 <Deven Robles - Last Filed: 01/05/19 20:37> Clinical Impression: Hyperemesis gravidarum Disposition: HOME SELF-CARE Condition: Good Instructions (If sedation given, give patient instructions): Hyperemesis Gravidarum (ED) Additional Instructions: Please take Reglan as directed. 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 Follow -up with Dr. Salazar tomorrow. Return here if you have worsening symptoms. Prescriptions: Metoclopramide HCl [Reglan] 10 mg PO Q6H #15 tablet Referrals: Angelo Gilbert MD [Primary Care Provider] - 1-2 days Audrey Ko DO [Doctor of Osteopathic Medicine] - 1-2 days
[2019-01-05 16:30] LABS: Basophils % (A) 0 %; Eosinophils # (A) 0.1 k/uL (0-0.7); Eosinophils % (A) 1 %; HGB 14.6 gm/dL (11.4-16.0); Lymphocytes # (A) 1.6 k/uL (1.0-4.8); Lymphocytes % (A) 13 %; MCH 28.7 pg (25.0-35.0); MCHC 33.2 g/dL (31.0-37.0); MCV 86.5 fL (80.0-100.0); Monocytes # (A) 0.5 k/uL (0-1.0); Monocytes % (A) 4 %; Neutrophils # (A) 9.8 k/uL (1.3-7.7); Neutrophils % (A) 81 %; Platelet Count 286 k/uL (150-450); RBC 5.08 m/uL (3.80-5.40); RDW 13.5 % (11.5-15.5)
[2019-01-05 16:35] LABS: ALT 28 U/L (9-52); AST 27 U/L (14-36); Albumin 4.8 g/dL (3.5-5.0); Alkaline Phosphatase 42 U/L (38-126); Amylase 87 U/L (30-110); Anion Gap 12 mmol/L; Blood Urea Nitrogen 10 mg/dL (7-17); Calcium 9.9 mg/dL (8.4-10.2); Carbon Dioxide 22 mmol/L (22-30); Chloride 103 mmol/L (98-107); Glucose 77 mg/dL (74-99); Lipase 222 U/L (23-300); Sodium 137 mmol/L (137-145); Total Bilirubin 0.6 mg/dL (0.2-1.3); Total Protein 7.8 g/dL (6.3-8.2)
[2019-01-05 16:36] LABS: Appearance,Urine Cloudy (Clear); Bacteria,Urine Moderate /hpf; Bilirubin,Urine Negative (Negative); Blood,Urine Small (Negative); Color,Urine Yellow; Glucose,Urine (UA) Negative (Negative); Ketones,Urine 4+ (Negative); Leukocyte Esterase,Urine Trace (Negative); Mucus,Urine Many /hpf; Nitrite,Urine Negative (Negative); PH, Urine 5.5 (5.0-8.0); Protein,Urine Trace (Negative); RBC,Urine 6 /hpf (0-5); Specific Gravity,Urine 1.025 (1.001-1.035); Squamous Epithelial Cell,Urine 8 /hpf (0-4); Urobilinogen,Urine <2.0 mg/dL (<2.0); WBC,Urine 5 /hpf (0-5)
[2019-01-05 17:34] VITALS: BP 118/72; PULSE 89
== END 2019-01-05 17:58 | disposition home or self-care (01) ==
LOC: EC 15:10
DX: O21.0 Mild hyperemesis gravidarum (principal); O99.89 Other specified diseases and conditions complicating pregnancy, childbirth and the puerperium; R19.7 Diarrhea, unspecified; Z79.899 Other long term (current) drug therapy; Z88.8 Allergy status to other drugs, medicaments and biological substances; Z3A.10 10 weeks gestation of pregnancy
CPT/HCPCS: 36415; 80053; 82150; 83690; 85025; 81001; 84702; 87086; 99284; 96374; 96375; 96376; 96361; J1200; J2765

== ENCOUNTER 2019-02-13 17:54 | Emergency (ER) | payer BC, OTHER ==
[2019-02-13 18:42] VITALS: RESP 18
[2019-02-13] MEDS ORDERED: SODIUM CHLORIDE 0.9% 1,000 ML IV ONE (19:02)
[2019-02-13] MEDS ORDERED: SODIUM CHLORIDE 0.9% 1,000 ML IV SCH (19:15)
--- NOTE | 2019-02-13 19:33 | ED ---
Nausea/Vomiting/Diarrhea HPI <Nithya Anderson - Last Filed: 02/13/19 21:38> - General Source: patient, RN notes reviewed, old records reviewed Mode of arrival: ambulatory Limitations: no limitations <Jeannie Cody - Last Filed: 02/15/19 12:18> - General Chief complaint: Nausea/Vomiting/Diarrhea Stated complaint: 16wks preg, cramping Time Seen by Provider: 02/13/19 18:50 - History of Present Illness Initial comments: This is a 23-year-old female presents to return today with nausea and vomiting intermittently for the past 2 months. She is fairly 16 weeks , this patient's first . Patient follows with Dr. Salazar. Patient was told to come to emergency department stay for IV fluids for dehydration for the persistent nausea and vomiting. Patient denies any vaginal bleeding or discharge. She did have a bowel movement yesterday. (Jeannie Cody) - Related Data Home Medications Medication Instructions Recorded Confirmed Loratadine [Claritin] 10 mg PO DAILY 12/30/18 02/13/19 Ondansetron [Zofran] 8 mg PO Q8H PRN 12/30/18 02/13/19 Pnv,Calcium 72/Iron/Folic Acid 1 tab PO DAILY 12/30/18 02/13/19 [ Plus Tablet] Previous Rx's Medication Instructions Recorded Metoclopramide [Reglan] 10 mg PO TID PRN #15 tab 12/31/18 Cephalexin [Keflex] 500 mg PO BID 3 Days #14 cap 02/13/19 Allergies Allergy/AdvReac Type Severity Reaction Status Date / Time venlafaxine [From Effexor] AdvReac dizziness Verified 02/13/19 19:00 Review of Systems ROS Other: All systems not noted in ROS Statement are negative. <Nithya Anderson - Last Filed: 02/13/19 21:38> ROS Other: All systems not noted in ROS Statement are negative. <Jeannie Cody - Last Filed: 02/15/19 12:18> ROS Statement: Those systems with pertinent positive or pertinent negative responses have been documented in the HPI. Past Medical History Past Medical History: No Reported History History of Any Multi-Drug Resistant Organisms: None Reported Past Surgical History: No Surgical Hx Reported Additional Past Surgical History / Comment(s): oral surgery Past Psychological History: Anxiety, Depression Smoking Status: Never smoker Past Alcohol Use History: None Reported Past Drug Use History: None Reported <Jeannie Cody - Last Filed: 02/15/19 12:18> General Exam Limitations: no limitations <Jeannie Cody - Last Filed: 02/15/19 12:18> - General Exam Comments Initial Comments: Well-appearing 23-year-old female. No distress. General: Well appearing, well nourished, in no distress. Oriented x 3, normal mood and affect . Ambulating without difficulty. Skin: Good turgor, no rash, unusual bruising or prominent lesions Hair: Normal texture and distribution. HEENT: Head: Normocephalic, atraumatic, no visible or palpable masses, depressions, or scaring. Eyes: Visual acuity intact, conjunctiva clear, sclera non-icteric, EOM intact, PERRL. Ears: EACs clear, TMs translucent & cone of light visualized. hearing intact. Nose: No external lesions, mucosa non-inflamed, septum and turbinates normal Mouth: Mucous membranes moist, no mucosal lesions. Teeth/Gums: No obvious caries or periodontal disease. No gingival inflammation or significant resorption. Pharynx: Mucosa non-inflamed, no tonsillar hypertrophy or exudate Neck: Supple, without lesions, bruits, or adenopathy, thyroid non-enlarged and non-tender Heart: No cardiomegaly or thrills; regular rate and rhythm, no murmur or gallop Lungs: Clear to auscultation and percussion Abdomen: Bowel sounds normal, no tenderness, organomegaly, masses, or hernia Back: Spine normal without deformity or tenderness, no CVA tenderness Extremities: No amputations or deformities, cyanosis, edema or varicosities, peripheral pulses intact Musculoskeletal: Normal gait and station. No misalignment, asymmetry, crepitation, defects, tenderness, masses, effusions, decreased range of motion, instability, atrophy or abnormal strength or tone in the head, neck, spine, ribs, pelvis or extremities. Neurologic: CN 2-12 normal. Sensation to pain, touch, and proprioception normal. DTRs normal in upper and lower extremities. No pathologic reflexes. Psychiatric: Oriented X3, intact recent and remote memory, judgment and insight, normal mood and affect. (Jeannie Cody) Course <Jeannie Cody - Last Filed: 02/15/19 12:18> Vital Signs 02/13/19 02/13/19 18:39 21:53 Temperature 98.6 F 98.0 F Pulse Rate 91 93 Respiratory 18 18 Rate Blood Pressure 104/69 110/65 O2 Sat by Pulse 98 100 Oximetry - Reevaluation(s) Reevaluation #1: 02/13/19 21:10 heart tones were obtained and normal. (Jeannie Cody) Medical Decision Making - Lab Data Result diagrams: 02/13/19 19:55 02/13/19 19:55 <Nithya Anderson - Last Filed: 02/13/19 21:38> - Lab Data Result diagrams: 02/13/19 19:55 02/13/19 19:55 <Jeannie Cody - Last Filed: 02/15/19 12:18> - Medical Decision Making Well-appearing 23-year-old female currently 16 weeks , . She presents today for nausea and vomiting. Patient has no vaginal bleeding or discharge. heart tones are obtained and within normal limits. Patient has no other concerns. She is given 2 L bolus. Tolerated fluids well. Had no further vomiting. The Patient should follow-up with her PCP and CLINICAL TECHNOLOGIST. Urine sample be obtained. Culture pending. (Jeannie Cody) - Lab Data Lab Results 02/13/19 02/13/19 02/13/19 Range/Units 19:55 19:55 20:30 WBC 10.1 (3.8-10.6) k/uL RBC 4.23 (3.80-5.40) m/uL Hgb 12.9 (11.4-16.0) gm/dL Hct 37.4 (34.0-46.0) % MCV 88.3 (80.0-100.0) fL MCH 30.5 (25.0-35.0) pg MCHC 34.5 (31.0-37.0) g/dL RDW 14.0 (11.5-15.5) % Plt Count 270 (150-450) k/uL Neutrophils % 77 % Lymphocytes % 17 % Monocytes % 5 % Eosinophils % 1 % Basophils % 0 % Neutrophils # 7.7 (1.3-7.7) k/uL Lymphocytes # 1.8 (1.0-4.8) k/uL Monocytes # 0.5 (0-1.0) k/uL Eosinophils # 0.1 (0-0.7) k/uL Basophils # 0.0 (0-0.2) k/uL Sodium 136 L (137-145) mmol/L Potassium 3.8 (3.5-5.1) mmol/L Chloride 103 (98-107) mmol/L Carbon Dioxide 23 (22-30) mmol/L Anion Gap 10 mmol/L BUN 8 (7-17) mg/dL Creatinine 0.40 L (0.52-1.04) mg/dL Est GFR (CKD-EPI)AfAm >90 (>60 ml/min/1.73 sqM) Est GFR (CKD-EPI)NonAf >90 (>60 ml/min/1.73 sqM) Glucose 75 (74-99) mg/dL Calcium 9.6 (8.4-10.2) mg/dL Total Bilirubin 0.6 (0.2-1.3) mg/dL AST 26 (14-36) U/L ALT 23 (9-52) U/L Alkaline Phosphatase 43 (38-126) U/L Total Protein 6.7 (6.3-8.2) g/dL Albumin 3.9 (3.5-5.0) g/dL Urine Color Yellow Urine Appearance Clear (Clear) Urine pH 6.0 (5.0-8.0) Ur Specific [place] 1.016 (1.001-1.035) Urine Protein Trace H (Negative) Urine Glucose (UA) Negative (Negative) Urine Ketones 2+ H (Negative) Urine Blood Negative (Negative) Urine Nitrite Negative (Negative) Urine Bilirubin Negative (Negative) Urine Urobilinogen <2.0 (<2.0) mg/dL Ur Leukocyte Esterase Trace H (Negative) Urine RBC 2 (0-5) /hpf Urine WBC 8 H (0-5) /hpf Ur Squamous Epith Cells <1 (0-4) /hpf Urine Bacteria Occasional H (None) /hpf Hyaline Casts 3 H (0-2) /lpf Urine Mucus Moderate H (None) /hpf Disposition <Nithya Anderson - Last Filed: 02/13/19 21:38> Is patient prescribed a controlled substance at d/c from ED?: No When asked, does pt state using other controlled substances?: No Time of Disposition: 21:13 <Jeannie Cody - Last Filed: 02/15/19 12:18> Clinical Impression: Nausea/vomiting in , Bacteriuria during Disposition: HOME SELF-CARE Condition: Good Instructions (If sedation given, give patient instructions): Urinary Tract Infection in Women (ED), Acute Nausea and Vomiting (ED) Additional Instructions: Patient advised to follow-up with primary care provider. Return to the emergency department if any alarming signs symptoms occur. Rest, remain hyd rated. Continue to use nausea medicine as prescribed by PCP. Prescriptions: Cephalexin [Keflex] 500 mg PO BID 3 Days #14 cap Referrals: Angelo Gilbert MD [Primary Care Provider] - 1-2 days
[2019-02-13 20:14] LABS: Basophils % (A) 0 %; Eosinophils # (A) 0.1 k/uL (0-0.7); Eosinophils % (A) 1 %; HCT 37.4 % (34.0-46.0); HGB 12.9 gm/dL (11.4-16.0); Lymphocytes # (A) 1.8 k/uL (1.0-4.8); Lymphocytes % (A) 17 %; MCH 30.5 pg (25.0-35.0); MCHC 34.5 g/dL (31.0-37.0); MCV 88.3 fL (80.0-100.0); Mean Platelet Volume 6.2; Monocytes # (A) 0.5 k/uL (0-1.0); Monocytes % (A) 5 %; Neutrophils # (A) 7.7 k/uL (1.3-7.7); Neutrophils % (A) 77 %; Platelet Count 270 k/uL (150-450); RBC 4.23 m/uL (3.80-5.40); WBC 10.1 k/uL (3.8-10.6)
[2019-02-13 20:22] LABS: ALT 23 U/L (9-52); AST 26 U/L (14-36); Albumin 3.9 g/dL (3.5-5.0); Alkaline Phosphatase 43 U/L (38-126); Anion Gap 10 mmol/L; Blood Urea Nitrogen 8 mg/dL (7-17); Calcium 9.6 mg/dL (8.4-10.2); Carbon Dioxide 23 mmol/L (22-30); Chloride 103 mmol/L (98-107); Glucose 75 mg/dL (74-99); Potassium 3.8 mmol/L (3.5-5.1); Sodium 136 mmol/L (137-145); Total Bilirubin 0.6 mg/dL (0.2-1.3); Total Protein 6.7 g/dL (6.3-8.2)
[2019-02-13 21:27] LABS: Appearance,Urine Clear (Clear); Bacteria,Urine Occasional /hpf; Bilirubin,Urine Negative (Negative); Blood,Urine Negative (Negative); Color,Urine Yellow; Glucose,Urine (UA) Negative (Negative); Hyaline Casts,Urine 3 /lpf (0-2); Ketones,Urine 2+ (Negative); Leukocyte Esterase,Urine Trace (Negative); Mucus,Urine Moderate /hpf; Nitrite,Urine Negative (Negative); Protein,Urine Trace (Negative); RBC,Urine 2 /hpf (0-5); Specific Gravity,Urine 1.016 (1.001-1.035); Squamous Epithelial Cell,Urine <1 /hpf (0-4); Urobilinogen,Urine <2.0 mg/dL (<2.0); WBC,Urine 8 /hpf (0-5)
[2019-02-13 21:54] VITALS: BP 110/65; PULSE 93; TEMP 98
== END 2019-02-13 21:54 | disposition home or self-care (01) ==
LOC: EC 17:54
DX: O21.9 Vomiting of pregnancy, unspecified (principal); O99.89 Other specified diseases and conditions complicating pregnancy, childbirth and the puerperium; R82.71 Bacteriuria; Z3A.16 16 weeks gestation of pregnancy; Z79.899 Other long term (current) drug therapy; Z88.8 Allergy status to other drugs, medicaments and biological substances
CPT/HCPCS: 36415; 80053; 81001; 85025; 87086; 96360; 96361; 99284

== ENCOUNTER 2019-03-04 23:40 | Emergency (ER) | payer BC, OTHER ==
[2019-03-05 00:04] VITALS: RESP 18
[2019-03-05] MEDS ORDERED: SODIUM CHLORIDE 0.9% 1,000 ML IV STA (00:49)
[2019-03-05] MEDS ORDERED: ACETAMINOPHEN TAB 500 MG TAB PO STA (00:50)
--- NOTE | 2019-03-05 00:59 | ED ---
Abdominal Pain HPI - General Source: patient Mode of arrival: ambulatory Limitations: no limitations <Nithya Anderson - Last Filed: 03/05/19 03:02> <Natasha Montes - Last Filed: 03/05/19 07:23> - General Chief Complaint: Abdominal Pain Stated Complaint: 19 Weeks Back Pain Abd Pain Time Seen by Provider: 03/05/19 00:44 - History of Present Illness Initial Comments: 23-year-old female patient presents to the emergency department today for evaluation of right flank pain radiating into her right sided abdomen and into her right groin. Patient does report being 19 weeks . She is . She states that pain started suddenly after urinating around 10 PM. Patient states the pain is been intermittent since. She describes the pain as a sharp stabbing pain. States that she did attempt a warm bath but it seemed to make the pain somewhat worse. She has not taken any medication for her symptoms. She denies any hematuria, dysuria, urinary frequency, urinary urgency. States she has had some nausea with the pain. Denies any abnormal vaginal bleeding or discharge. Does have a history of kidney stones with states this pain is worse than her previous episodes. She denies fever or chills. Denies constipation or diarrhea. Patient denies any recent rash, shortness breath, chest pain, n umbness, tingling, dizziness, weakness, headache, visual changes, or any other complaints. (Nithya Anderson) - Related Data Home Medications Medication Instructions Recorded Confirmed Loratadine [Claritin] 10 mg PO DAILY 12/30/18 02/13/19 Ondansetron [Zofran] 8 mg PO Q8H PRN 12/30/18 02/13/19 Pnv,Calcium 72/Iron/Folic Acid 1 tab PO DAILY 12/30/18 02/13/19 [ Plus Tablet] Previous Rx's Medication Instructions Recorded Metoclopramide [Reglan] 10 mg PO TID PRN #15 tab 12/31/18 Cephalexin [Keflex] 500 mg PO BID 3 Days #14 cap 02/13/19 Cephalexin [Keflex] 500 mg PO Q6H #20 cap 03/05/19 Allergies Allergy/AdvReac Type Severity Reaction Status Date / Time venlafaxine [From Effexor] AdvReac dizziness Verified 02/13/19 19:00 Review of Systems ROS Other: All systems not noted in ROS Statement are negative. <Nithya Anderson - Last Filed: 03/05/19 03:02> ROS Other: All systems not noted in ROS Statement are negative. <SimonNatasha Ronda - Last Filed: 03/05/19 07:23> ROS Statement: Those systems with pertinent positive or pertinent negative responses have been documented in the HPI. Past Medical History Past Medical History: No Reported History History of Any Multi-Drug Resistant Organisms: None Reported Past Surgical History: No Surgical Hx Reported Additional Past Surgical History / Comment(s): oral surgery Past Psychological History: Anxiety, Depression Smoking Status: Never smoker Past Alcohol Use History: None Reported Past Drug Use History: None Reported <Nithya Anderson - Last Filed: 03/05/19 03:02> General Exam Limitations: no limitations General appearance: alert, in no apparent distress, other (Physical well- developed, well-nourished adult female patient in no acute distress. Vital sign s upon presentation are temperature 98.5F, pulse 82, respirations 18, blood pressure 97/67, pulse ox 100% on room air.) Eye exam: Present: normal appearance, PERRL, EOMI. Absent: scleral icterus, conjunctival injection, periorbital swelling ENT exam: Present: normal exam, normal oropharynx, mucous membranes moist Respiratory exam: Present: normal lung sounds bilaterally. Absent: respiratory distress, wheezes, rales, rhonchi, stridor Cardiovascular Exam: Present: regular rate, normal rhythm, normal heart sounds. Absent: systolic murmur, diastolic murmur, rubs, gallop, clicks GI/Abdominal exam: Present: soft, tenderness (Right upper quadrant, right lower quadrant tenderness), normal bowel sounds. Absent: distended, guarding, rebound, rigid Back exam: Present: normal inspection, CVA tenderness (R). Absent: CVA tenderness (L) Neurological exam: Present: alert, oriented X3, CN II-XII intact Psychiatric exam: Present: normal affect, normal mood Skin exam: Present: warm, dry, intact, normal color. Absent: rash <Nithya Anderson - Last Filed: 03/05/19 03:02> Course Vital Signs 03/05/19 03/05/19 00:00 02:31 Temperature 98.5 F 98.4 F Pulse Rate 82 91 Respiratory 18 18 Rate Blood Pressure 97/67 108/69 O2 Sat by Pulse 100 99 Oximetry Medical Decision Making - Lab Data Result diagrams: 03/05/19 01:06 03/05/19 01:06 <Nithya Anderson - Last Filed: 03/05/19 03:02> - Lab Data Result diagrams: 03/05/19 01:06 03/05/19 01:06 <Natasha Montes - Last Filed: 03/05/19 07:23> - Medical Decision Making 23-year-old female patient presents to the emergency department today for evaluation of right flank pain radiating to the right side abdomen. Patient is 19 weeks with her first . She denies vaginal bleeding or discharge. She is afebrile, vital signs stable. Physical examination did reveal mild right upper and right lower quadrant tenderness. Labs reviewed and are unremarkable. Urinalysis shows bacteria and white blood cells, this will be sent for culture. We'll treat patient for asymptomatic bacteriuria. heart tones were around 150. My attending Dr[address] Montes was in to evaluate the patient, did perform limited ultrasound of the right kidney and fetus. No gross abnormalities. We did discuss findings and results with the patient, we did inform her that we're unable to completely rule out adverse process with this limited ultrasound, but we did offer her comprehensive ultrasound to further evaluate her pain. She does report that symptoms are improved at this time and she would rather be discharged home to follow-up with her doctor. She is instructed to increase fluids and use Tylenol for pain. Return parameters discussed in detail. She verbalizes understanding and agrees with this plan. (Nithya Anderson) I personally saw and evaluated the patient, she reports her pain had improved after receiving Tylenol. She reported her pain was only 4 out of 10 and she was much more comfortable. I performed a bedside ultrasound showed a very active fetus. Patient expressed a lot of relief upon reviewing this. Discussed with the patient option for formal ultrasound of the kidneys and abdomen to assess for causes of her pain versus discharge home with post follow-up and return parameters. Ambulating around the room reports feeling much comfortable is c omfortable with plan for discharge home. (Natasha Montes) - Lab Data Lab Results 03/05/19 03/05/19 03/05/19 Range/Units 01:06 01:06 01:06 WBC 10.3 (3.8-10.6) k/uL RBC 4.05 (3.80-5.40) m/uL Hgb 11.7 (11.4-16.0) gm/dL Hct 34.0 (34.0-46.0) % MCV 84.1 (80.0-100.0) fL MCH 29.0 (25.0-35.0) pg MCHC 34.5 (31.0-37.0) g/dL RDW 16.3 H (11.5-15.5) % Plt Count 296 (150-450) k/uL Neutrophils % 74 % Lymphocytes % 17 % Monocytes % 6 % Eosinophils % 1 % Basophils % 0 % Neutrophils # 7.7 (1.3-7.7) k/uL Lymphocytes # 1.8 (1.0-4.8) k/uL Monocytes # 0.6 (0-1.0) k/uL Eosinophils # 0.1 (0-0.7) k/uL Basophils # 0.0 (0-0.2) k/uL Anisocytosis Slight Sodium 138 (137-145) mmol/L Potassium 3.6 (3.5-5.1) mmol/L Chloride 106 (98-107) mmol/L Carbon Dioxide 22 (22-30) mmol/L Anion Gap 10 mmol/L BUN 6 L (7-17) mg/dL Creatinine 0.37 L (0.52-1.04) mg/dL Est GFR (CKD-EPI)AfAm >90 (>60 ml/min/1.73 sqM) Est GFR (CKD-EPI)NonAf >90 (>60 ml/min/1.73 sqM) Glucose 82 (74-99) mg/dL Calcium 9.2 (8.4-10.2) mg/dL Total Bilirubin 0.3 (0.2-1.3) mg/dL AST 21 (14-36) U/L ALT 33 (9-52) U/L Alkaline Phosphatase 57 (38-126) U/L Total Protein 6.2 L (6.3-8.2) g/dL Albumin 3.5 (3.5-5.0) g/dL Amylase 67 (30-110) U/L Lipase 203 (23-300) U/L Urine Color Light Yellow Urine Appearance Cloudy H (Clear) Urine pH 6.5 (5.0-8.0) Ur Specific [place] 1.008 (1.001-1.035) Urine Protein Negative (Negative) Urine Glucose (UA) Negative (Negative) Urine Ketones Negative (Negative) Urine Blood Negative (Negative) Urine Nitrite Negative (Negative) Urine Bilirubin Negative (Negative) Urine Urobilinogen <2.0 (<2.0) mg/dL Ur Leukocyte Esterase Trace H (Negative) Urine RBC 1 (0-5) /hpf Urine WBC 8 H (0-5) /hpf Urine WBC Clumps Rare H (None) /hpf Ur Squamous Epith Cells 6 H (0-4) /hpf Urine Bacteria Few H (None) /hpf Urine Mucus Rare H (None) /hpf Disposition Is patient prescribed a controlled substance at d/c from ED?: No Time of Disposition: 02:23 <Nithya Anderson - Last Filed: 03/05/19 03:02> <Natasha Montes - Last Filed: 03/05/19 07:23> Clinical Impression: Right flank pain, Bacteriuria during Disposition: HOME SELF-CARE Condition: Good Instructions (If sedation given, give patient instructions): Abdominal Pain in (ED), Flank Pain (ED) Additional Instructions: Continue Tylenol for pain. Follow-up with your [facility] for recheck on Wednesday. Return to the emergency department for any new, worsening, or concerning symptoms. Prescriptions: Cephalexin [Keflex] 500 mg PO Q6H #20 cap Referrals: Angelo Gilbert MD [Primary Care Provider] - 1-2 days
[2019-03-05 01:19] LABS: Anisocytosis Slight; Basophils % (A) 0 %; Eosinophils # (A) 0.1 k/uL (0-0.7); Eosinophils % (A) 1 %; HGB 11.7 gm/dL (11.4-16.0); Lymphocytes # (A) 1.8 k/uL (1.0-4.8); Lymphocytes % (A) 17 %; MCHC 34.5 g/dL (31.0-37.0); MCV 84.1 fL (80.0-100.0); Mean Platelet Volume 9.2; Monocytes # (A) 0.6 k/uL (0-1.0); Monocytes % (A) 6 %; Neutrophils # (A) 7.7 k/uL (1.3-7.7); Neutrophils % (A) 74 %; Platelet Count 296 k/uL (150-450); RBC 4.05 m/uL (3.80-5.40); RDW 16.3 % (11.5-15.5); WBC 10.3 k/uL (3.8-10.6)
[2019-03-05 01:34] LABS: Appearance,Urine Cloudy (Clear); Bacteria,Urine Few /hpf; Bilirubin,Urine Negative (Negative); Blood,Urine Negative (Negative); Color,Urine Light Yellow; Glucose,Urine (UA) Negative (Negative); Ketones,Urine Negative (Negative); Leukocyte Esterase,Urine Trace (Negative); Mucus,Urine Rare /hpf; Nitrite,Urine Negative (Negative); PH, Urine 6.5 (5.0-8.0); Protein,Urine Negative (Negative); RBC,Urine 1 /hpf (0-5); Specific Gravity,Urine 1.008 (1.001-1.035); Squamous Epithelial Cell,Urine 6 /hpf (0-4); Urobilinogen,Urine <2.0 mg/dL (<2.0); WBC,Urine 8 /hpf (0-5)
[2019-03-05 01:35] LABS: ALT 33 U/L (9-52); AST 21 U/L (14-36); Albumin 3.5 g/dL (3.5-5.0); Alkaline Phosphatase 57 U/L (38-126); Amylase 67 U/L (30-110); Anion Gap 10 mmol/L; Blood Urea Nitrogen 6 mg/dL (7-17); Calcium 9.2 mg/dL (8.4-10.2); Carbon Dioxide 22 mmol/L (22-30); Chloride 106 mmol/L (98-107); Glucose 82 mg/dL (74-99); Lipase 203 U/L (23-300); Potassium 3.6 mmol/L (3.5-5.1); Sodium 138 mmol/L (137-145); Total Bilirubin 0.3 mg/dL (0.2-1.3); Total Protein 6.2 g/dL (6.3-8.2)
[2019-03-05] MEDS ORDERED: CEPHALEXIN 500MG STARTER PACK 4 CAP BTL PO STA (02:22)
[2019-03-05 02:35] VITALS: BP 108/69; PULSE 91; TEMP 98.4
== END 2019-03-05 02:40 | disposition home or self-care (01) ==
LOC: EC 23:40
DX: O23.92 Unspecified genitourinary tract infection in pregnancy, second trimester (principal); R82.71 Bacteriuria; O26.892 Other specified pregnancy related conditions, second trimester; R10.9 Unspecified abdominal pain; Z79.899 Other long term (current) drug therapy; Z88.8 Allergy status to other drugs, medicaments and biological substances; Z3A.19 19 weeks gestation of pregnancy
CPT/HCPCS: 36415; 80053; 81001; 82150; 83690; 85025; 87086; 96360; 99284

== ENCOUNTER 2019-04-16 19:06 | Outpatient (CLI) | payer BC, OTHER ==
[2019-04-16] MEDS: DEXTROSE 5%-LACTATED RINGERS 1,000 ML IV SCH ×2 (20:00→20:45)
[2019-04-16 20:18] LABS: Basophils % (A) 0 %; Eosinophils # (A) 0.1 k/uL (0-0.7); Eosinophils % (A) 1 %; HCT 31.9 % (34.0-46.0); HGB 10.3 gm/dL (11.4-16.0); Lymphocytes # (A) 1.5 k/uL (1.0-4.8); Lymphocytes % (A) 19 %; MCH 28.4 pg (25.0-35.0); MCHC 32.3 g/dL (31.0-37.0); Mean Platelet Volume 6.6; Monocytes # (A) 0.5 k/uL (0-1.0); Monocytes % (A) 6 %; Neutrophils # (A) 5.9 k/uL (1.3-7.7); Neutrophils % (A) 74 %; Platelet Count 317 k/uL (150-450); RBC 3.62 m/uL (3.80-5.40); RDW 13.3 % (11.5-15.5)
[2019-04-16 20:21] LABS: Appearance,Urine Cloudy (Clear); Bacteria,Urine Occasional /hpf; Bilirubin,Urine Negative (Negative); Blood,Urine Negative (Negative); Calcium Oxalate Crystals,Urine Occasional /hpf; Color,Urine Yellow; Glucose,Urine (UA) Negative (Negative); Ketones,Urine Negative (Negative); Leukocyte Esterase,Urine Trace (Negative); Mucus,Urine Occasional /hpf; Nitrite,Urine Negative (Negative); Protein,Urine Trace (Negative); RBC,Urine 5 /hpf (0-5); Specific Gravity,Urine 1.023 (1.001-1.035); Squamous Epithelial Cell,Urine 1 /hpf (0-4); Urobilinogen,Urine <2.0 mg/dL (<2.0); WBC,Urine 10 /hpf (0-5)
[2019-04-16 20:34] LABS: Potassium 3.5 mmol/L (3.5-5.1)
[2019-04-16 20:47] VITALS: BP 113/64; PULSE 99; RESP 16; TEMP 98.2
--- NOTE | 2019-05-10 07:41 | P.MSEPDOC ---
Presenting Problems - Arrival Data Date of Arrival on Unit: 04/16/19 Time of Arrival on Unit: 19:06 Mode of Transport: Ambulatory - Complaint OB-Reason for Admission/Chief Complaint: Decreased Movement, Acute Nausea/Vomiting Comment: n/v and no movement x4 days Medical History - Information : 1 Para: 0 Term: 0 : 0 Abortions: Spontaneous or Elective: 0 Number of Living Children: 0 - Gestational Age Gestational Age by CAIT (wks/days): 25 Weeks and 0 Days Review of Systems - Review of Systems Constitutional: No problems Breast: No problems ENT: No problems Cardiovascular: No problems Respiratory: No problems Gastrointestinal: No problems Genitourinary: No problems Musculoskeletal: No problems Neurological: No problems Skin: No problems Vital Signs - Temperature Temperature: 98.2 F Temperature Source: Oral - Pulse Right Pulse Rate: 99 Pulse Assessment Method: Pulse Oximetry - Respirations Respiratory Rate: 16 O2 Sat by Pulse Oximetry: 99 - Blood Pressure Right Arm Blood Pressure: 113/64 Blood Pressure Mean: 80 Blood Pressure Source: Automatic Cuff Medical Screen Scoring (Pre) - Cervical Exam Dilation: Exam Deferred Effacement: Exam Deferred - Uterine Contractions Frequency: N/A Duration: N/A Intensity: N/A - Maternal Vital Signs Maternal Temperature: N/A Maternal Blood Pressure: N/A Signs of Preeclampsia: N/A Maternal Respirations: N/A - Assessment - Baby A Baseline FHR: 150 Heart Rate - NICHD Category: Category I (Normal) = 0 NST: Reactive Position: N/A - Total Score - Baby A Total Score - Baby A: 0 - Level of Risk - Baby A Level of Risk - Baby A: Low (0-5) - Pain Assessment Pain Intensity: 0 Physician Notification (Pre) - Physician Notified Physician Notified Date: 04/16/19 Physician Notified Time: 19:43 Physician/Practitioner Notifed:: Dr Hector - Notification Comment Comment: Dr Hector in dept. Reported on pts c/o n/v since , as well as no movement since that time. reported on reactive fhts, pt is feeling movement, has not vomitted since being here. verbal orders given: 2L D5/LR, CBC, lytes panel, UA, keep on monitor. Orders to call with results. reviewed strip. Medical Screen Scoring (Post) - Cervical Exam Dilation: Exam Deferred Effacement: Exam Deferred Membranes: Intact - Uterine Contractions Frequency: N/A Duration: N/A Intensity: N/A - Maternal Vital Signs Maternal Temperature: N/A Maternal Blood Pressure: N/A Signs of Preeclampsia: N/A Maternal Respirations: N/A - Assessment - Baby A Heart Rate: 140 Heart Rate - NICHD Category: Category I (Normal) = 0 NST: Reactive Position: N/A - Total Score Total Score - Baby A: 0 - Post Treatment Level of Risk Post Treatment Level of Risk - Baby A: Low (0-5) Physician Notification (Post) - Physician Notified Physician Notified Date: 04/16/19 Physician Notified Time: 21:13 Physician/Practitioner Notified:: Dr Hector - Notification Comment Comment: Dr Hector called unit for update. Reported on IV status, no vomitting, lab results, pt feeling better, large amount of movement. Orders to d/c home after bag infused, call office in am to scheduled sooner appt, return with new or worsening sx Disposition - Disposition OB Disposition: Discharge to home Discharge Date: 04/16/19 Discharge Time: 21:35 I agree with the RN Medical Screening Exam: Yes Risk & Benefit of care provided described in d/c instruction: Yes Diagnosis: DECREASED MOVEMENTS, SECOND TRIMESTER, FETUS 1
== END 2019-04-16 21:35 | disposition home or self-care (01) ==
LOC: FBPOP 19:06
PROVIDERS: ATTEND Obstetrics & Gynecology
DX: O36.8121 Decreased fetal movements, second trimester, fetus 1 (principal); Z3A.25 25 weeks gestation of pregnancy
CPT/HCPCS: 80051; 81001; 85025; 96360; 96361; 99214

== ENCOUNTER 2019-05-15 11:38 | Outpatient (CLI) | payer BC, OTHER ==
[2019-05-15 12:34] VITALS: BP 107/63; PULSE 97; RESP 17; TEMP 98.5
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
== END 2019-05-15 12:30 | disposition home or self-care (01) ==
LOC: FBPOP 11:38
PROVIDERS: ATTEND Obstetrics & Gynecology Obstetrics
DX: O47.03 False labor before 37 completed weeks of gestation, third trimester (principal); Z3A.29 29 weeks gestation of pregnancy
CPT/HCPCS: 59025; 84112; 99213

== ENCOUNTER 2019-06-01 18:51 | Outpatient (CLI) | payer BC, OTHER ==
[2019-06-01 19:55] VITALS: BP 116/61; PULSE 111; RESP 18; TEMP 97.5
--- NOTE | 2019-06-10 09:44 | P.MSEPDOC ---
Presenting Problems - Arrival Data Date of Arrival on Unit: 06/01/19 Time of Arrival on Unit: 18:51 Mode of Transport: Ambulatory - Complaint OB-Reason for Admission/Chief Complaint: Pain Comment: back pain and cramping Medical History - Information : 1 Para: 0 Term: 0 : 0 Abortions: Spontaneous or Elective: 0 Number of Living Children: 0 - Gestational Age Gestational Age by CAIT (wks/days): 31 Weeks and 4 Days Review of Systems - Review of Systems Constitutional: No problems Breast: No problems ENT: No problems Cardiovascular: No problems Respiratory: No problems Gastrointestinal: No problems Genitourinary: No problems Musculoskeletal: No problems Neurological: No problems Skin: No problems Vital Signs - Temperature Temperature: 97.5 F Temperature Source: Temporal Artery Scan - Pulse Right Brachial Pulse Rate: 111 Pulse Assessment Method: Automatic Cuff - Respirations Respiratory Rate: 18 Oxygen Delivery Method: Room Air O2 Sat by Pulse Oximetry: 98 - Blood Pressure Right Arm Blood Pressure: 116/61 Blood Pressure Mean: 79 Blood Pressure Source: Automatic Cuff Medical Screen Scoring (Pre) - Cervical Exam Dilation: 0 cm = 0 Effacement: Exam Deferred Membranes: Intact - Uterine Contractions Frequency: N/A Duration: N/A Intensity: N/A - Maternal Vital Signs Maternal Temperature: N/A Maternal Blood Pressure: N/A Signs of Preeclampsia: N/A Maternal Respirations: N/A - Maternal Trauma Maternal Trauma: N/A - Assessment - Baby A Baseline FHR: 130 Heart Rate - NICHD Category: Category I (Normal) = 0 NST: Reactive Position: N/A Station: N/A - Total Score - Baby A Total Score - Baby A: 0 - Total Score - Baby B Total Score - Baby B: 0 - Total Score - Baby C Total Score - Baby C: 0 - Level of Risk - Baby A Level of Risk - Baby A: Low (0-5) - Level of Risk - Baby B Level of Risk - Baby B: Low (0-5) - Level of Risk - Baby C Level of Risk - Baby C: Low (0-5) Physician Notification (Pre) - Physician Notified Physician Notified Date: 06/01/19 Physician Notified Time: 19:26 Physician/Practitioner Notifed:: Dr. Hu Spoke With: Dr. Hurtubise New Order Received: Yes - Notification Comment Comment: discharge pt home and follow up on wednesday with scheduled appt, increase fluids over the weekend and take it easy Disposition - Disposition OB Disposition: Triage, Discharge to home, Written follow up instructions reviewed Discharge Date: 06/01/19 Discharge Time: 19:45 I agree with the RN Medical Screening Exam: Yes Risk & Benefit of care provided described in d/c instruction: Yes Diagnosis: FALSE LABOR BEFORE 37 COMPLETED WEEKS OF GEST, THIRD TRI
== END 2019-06-01 19:45 | disposition home or self-care (01) ==
LOC: FBPOP 18:51
PROVIDERS: ATTEND Obstetrics & Gynecology
DX: O47.03 False labor before 37 completed weeks of gestation, third trimester (principal); Z3A.31 31 weeks gestation of pregnancy
CPT/HCPCS: 59025; 99213

== ENCOUNTER 2019-06-18 15:15 | Outpatient (CLI) | payer BC, OTHER ==
[2019-06-18 18:36] VITALS: BP 115/63; PULSE 97; RESP 18; TEMP 97.5
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
== END 2019-06-18 19:20 | disposition home or self-care (01) ==
LOC: FBPOP 15:15
PROVIDERS: ATTEND Obstetrics & Gynecology
DX: O26.93 Pregnancy related conditions, unspecified, third trimester (principal); Z3A.34 34 weeks gestation of pregnancy
CPT/HCPCS: 59025; 82731; 99213

== ENCOUNTER 2019-07-01 22:50 | Outpatient (CLI) | payer BC, OTHER ==
[2019-07-01 23:45] VITALS: BP 118/67; PULSE 99; RESP 18; TEMP 97.2
--- NOTE | 2019-07-23 12:40 | P.MSEPDOC ---
Presenting Problems - Arrival Data Date of Arrival on Unit: 07/01/19 Time of Arrival on Unit: 22:50 Mode of Transport: Ambulatory - Complaint OB-Reason for Admission/Chief Complaint: Decreased Movement, NST Comment: pt c/o lower back pain and abd tighening, and no movement felt since noon Medical History - Information : 1 Para: 0 Term: 0 : 0 Abortions: Spontaneous or Elective: 0 Number of Living Children: 0 - Gestational Age Gestational Age by CAIT (wks/days): 35 Weeks and 6 Days Review of Systems - Review of Systems Constitutional: No problems Breast: No problems ENT: No problems Cardiovascular: No problems Respiratory: No problems Gastrointestinal: No problems Genitourinary: No problems Musculoskeletal: No problems Neurological: No problems Skin: No problems Vital Signs - Temperature Temperature: 97.2 F Temperature Source: Temporal Artery Scan - Pulse Right Brachial Pulse Rate: 99 Pulse Assessment Method: Automatic Cuff - Respirations Respiratory Rate: 18 Oxygen Delivery Method: Room Air O2 Sat by Pulse Oximetry: 99 - Blood Pressure Right Arm Blood Pressure: 118/67 Blood Pressure Mean: 84 Blood Pressure Source: Automatic Cuff Medical Screen Scoring (Pre) - Cervical Exam Dilation: 1-3 cm = 1 Effacement: Exam Deferred Membranes: Intact - Uterine Contractions Frequency: > 5 minutes apart = 1 Duration: N/A Intensity: N/A - Maternal Vital Signs Maternal Temperature: N/A Maternal Blood Pressure: N/A Signs of Preeclampsia: N/A Maternal Respirations: N/A - Maternal Trauma Maternal Trauma: N/A - Assessment - Baby A Baseline FHR: 145 Heart Rate - NICHD Category: Category I (Normal) = 0 NST: Reactive Position: N/A Station: N/A - Total Score - Baby A Total Score - Baby A: 2 - Total Score - Baby B Total Score - Baby B: 2 - Total Score - Baby C Total Score - Baby C: 2 - Level of Risk - Baby A Level of Risk - Baby A: Low (0-5) - Level of Risk - Baby B Level of Risk - Baby B: Low (0-5) - Level of Risk - Baby C Level of Risk - Baby C: Low (0-5) Physician Notification (Pre) - Physician Notified Physician Notified Date: 07/01/19 Physician Notified Time: 23:30 Physician/Practitioner Notifed:: Dr. Vinson Spoke With: Dr. Vinson New Order Received: Yes - Notification Comment Comment: reactive nst, irregular contractions, discharge pt home, has scheduled nohemi for wed this week Disposition - Disposition OB Disposition: Triage, Discharge to home, Written follow up instructions reviewed Discharge Date: 07/01/19 Discharge Time: 23:45 I agree with the RN Medical Screening Exam: Yes Risk & Benefit of care provided described in d/c instruction: Yes Diagnosis: DECREASED MOVEMENTS, THIRD TRIMESTER, UNSP
== END 2019-07-01 23:45 | disposition home or self-care (01) ==
LOC: FBPOP 22:50
PROVIDERS: ATTEND Obstetrics & Gynecology
DX: O36.8130 Decreased fetal movements, third trimester, not applicable or unspecified (principal); Z3A.35 35 weeks gestation of pregnancy
CPT/HCPCS: 59025; 99213

== ENCOUNTER 2019-07-07 11:22 | Outpatient (CLI) | payer BC, OTHER ==
[2019-07-07 11:51] VITALS: BP 118/65; PULSE 89; RESP 14; TEMP 97.7
--- NOTE | 2019-07-11 15:04 | P.MSEPDOC ---
Presenting Problems - Arrival Data Date of Arrival on Unit: 07/07/19 Time of Arrival on Unit: 11:30 Mode of Transport: Ambulatory - Complaint OB-Reason for Admission/Chief Complaint: Rule Out PROM Comment: reports possible leaking of fluid Medical History - Information : 1 Para: 0 Term: 0 : 0 Abortions: Spontaneous or Elective: 0 Number of Living Children: 0 - Gestational Age Gestational Age by CAIT (wks/days): 36 Weeks and 5 Days Review of Systems - Review of Systems Constitutional: No problems Breast: No problems ENT: No problems Cardiovascular: No problems Respiratory: No problems Gastrointestinal: No problems Genitourinary: No problems Musculoskeletal: No problems Neurological: No problems Skin: No problems Vital Signs - Temperature Temperature: 97.7 F Temperature Source: Oral - Pulse Pulse Oximetery Pulse Rate: 89 Pulse Assessment Method: Pulse Oximetry - Respirations Respiratory Rate: 14 Oxygen Delivery Method: Room Air - Blood Pressure Right Arm Blood Pressure: 118/65 Blood Pressure Mean: 82 Blood Pressure Source: Automatic Cuff Medical Screen Scoring (Pre) - Cervical Exam Dilation: 1-3 cm = 1 Membranes: Intact - Uterine Contractions Frequency: N/A Duration: N/A Intensity: N/A - Maternal Vital Signs Maternal Temperature: N/A Maternal Blood Pressure: N/A Signs of Preeclampsia: N/A Maternal Respirations: N/A - Maternal Trauma Maternal Trauma: N/A - Assessment - Baby A Baseline FHR: 145 Heart Rate - NICHD Category: Category I (Normal) = 0 NST: Reactive Position: N/A Station: N/A - Total Score - Baby A Total Score - Baby A: 1 - Total Score - Baby B Total Score - Baby B: 1 - Total Score - Baby C Total Score - Baby C: 1 - Level of Risk - Baby A Level of Risk - Baby A: Low (0-5) - Level of Risk - Baby B Level of Risk - Baby B: Low (0-5) - Level of Risk - Baby C Level of Risk - Baby C: Low (0-5) Physician Notification (Post) - Physician Notified Physician Notified Date: 07/07/19 Physician Notified Time: 12:05 Physician/Practitioner Notified:: jazlyn Spoke With: jazlyn New Order Received: Yes - Notification Comment Comment: discharge home Disposition - Disposition OB Disposition: Discharge to home Discharge Date: 07/07/19 Discharge Time: 12:17 I agree with the RN Medical Screening Exam: Yes Risk & Benefit of care provided described in d/c instruction: Yes Diagnosis: FALSE LABOR BEFORE 37 COMPLETED WEEKS OF GEST, THIRD TRI
== END 2019-07-07 12:18 | disposition home or self-care (01) ==
LOC: FBPOP 11:22
PROVIDERS: ATTEND Obstetrics & Gynecology Obstetrics
DX: O47.03 False labor before 37 completed weeks of gestation, third trimester (principal); Z3A.36 36 weeks gestation of pregnancy
CPT/HCPCS: 59025; 84112; 99213

== ENCOUNTER 2019-07-21 10:26 | Inpatient (IN) | payer BC, OTHER ==
[2019-07-21] MEDS: LACTATED RINGERS 1,000 ML IV SCH ×3 (11:00→17:53)
[2019-07-21] MEDS ORDERED: CARBOPROST TROMETHAMINE 250 MCG/ML 1 ML AMP IM PRN (11:30)
[2019-07-21] MEDS ORDERED: METHYLERGONOVINE 0.2 MG/ML 1 ML AMP IM PRN (11:30)
[2019-07-21] MEDS ORDERED: LIDOCAINE 0.5% (PF) 5 MG/ML (50 ML SDV) SQ PRN (11:30)
[2019-07-21] MEDS ORDERED: TERBUTALINE 1 MG/ML VIAL SQ PRN (11:30)
[2019-07-21] MEDS ORDERED: OXYTOCIN 30 UNITS/500 ML NS 30 UNIT in SALINE 1 500ML.BAG IV SCH (11:30)
[2019-07-21] MEDS ORDERED: OXYTOCIN 10 UNIT/ML 1 ML VIAL IM PRN (11:30)
[2019-07-21 11:48] VITALS: BMI 29.7
[2019-07-21 12:24] LABS: Anisocytosis Slight; HGB 9.1 gm/dL (11.4-16.0); Hypochromasia Marked; MCH 22.9 pg (25.0-35.0); MCHC 31.5 g/dL (31.0-37.0); MCV 72.7 fL (80.0-100.0); Mean Platelet Volume 7.7; Microcytosis Moderate; Platelet Count 376 k/uL (150-450); Poikilocytosis Moderate; RBC 3.99 m/uL (3.80-5.40); RDW 17.3 % (11.5-15.5); WBC 12.9 k/uL (3.8-10.6)
[2019-07-21 12:44] LABS: Eosinophils # (M) 0.13 k/uL (0-0.7); Lymphocytes # (M) 1.29 k/uL (1.0-4.8); Monocytes # (M) 1.55 k/uL (0-1.0); Neutrophils % (M) 77 %; Nucleated Red Blood Cells 0 /100 WBC (0-0); Polychromasia Present; Total Cells Counted 100
[2019-07-21] MEDS ORDERED: fentaNYL (PF) 50 MCG/ML 5 ML AMP ONE (13:43)
[2019-07-21] MEDS ORDERED: SODIUM CHLORIDE 0.9% 100 ML BAG ONE (13:43)
[2019-07-21] MEDS ORDERED: ROPIVACAINE 5MG/ML 20ML VIAL ONE (13:43)
--- NOTE | 2019-07-21 14:15 | P.HPOB ---
History of Present Illness H&P Date: 07/21/19 Chief Complaint: IUP at 38 and 5/sevenths weeks, labor This is a pleasant 23-year-old 1 para 0 at 38-5/7 weeks that presented to labor and delivery with complaints of regular painful contractions. Patient denied loss of fluid or vaginal bleeding. She states that contractions were so uncomfortable over the evening she was tearful. has been relatively uncomplicated. On blood work shows a blood type of B-, rubella is immune, RPR nonreactive, hepatitis B surface antigen negative, HIV negative, she did have a positive Chlamydia culture treate d on 01/16 and was negative on reculture. 03/08. She passed her Glucola, received rhogam on 05/08 and TDap on 06/05. She is GBS negative on 06/29 Review of Systems Constitutional: Denies chills, Denies fatigue, Denies fever Ears, nose, mouth and throat: Denies headache Cardiovascular: Reports edema Respiratory: Denies dyspnea Gastrointestinal: Denies nausea, Denies vomiting Genitourinary: Reports Past Medical History Past Medical History: No Reported History History of Any Multi-Drug Resistant Organisms: None Reported Past Surgical History: No Surgical Hx Reported Additional Past Surgical History / Comment(s): oral surgery Past Anesthesia/Blood Transfusion Reactions: No Reported Reaction Smoking Status: Never smoker - Past Family History Sister(s) Family Medical History: Cancer Additional Family Medical History / Comment(s): brain cancer Medications and Allergies Home Medications Medication Instructions Recorded Confirmed Type Albuterol Inhaler [Ventolin Hfa 1 - 2 puff INHALATION RT-Q6H PRN 05/15/19 07/21/19 History Inhaler] Loratadine [Claritin] 10 mg PO DAILY 06/18/19 07/21/19 History Allergies Allergy/AdvReac Type Severity Reaction Status Date / Time venlafaxine [From Effexor] AdvReac dizziness Verified 07/21/19 10:46 Exam Osteopathic Statement: *. No significant issues noted on an osteopathic structural exam other than those noted in the History and Physical/Consult. Vital Signs Temp Pulse Resp BP Pulse Ox 07/21/19 11:14 96.3 F L 114 H 18 132/80 98 Intake and Output 07/20/19 07/21/19 07/21/19 22:59 06:59 14:59 Other: Weight 83.461 kg Targeted physical exam is performed and the state in general this a well- nourished well-developed female in no acute distress, breathing is nonlabored, heart has regular rate and rhythm, abdomen is gravid and appropriate for gestational age, heart tones are noted to be category 1 and she is roger every 3-4 minutes, on exam she is 4/80/-1 with a bulging bag of water. Results Result Diagrams: 07/21/19 11:00 Abnormal Lab Results - Last 24 Hours (Table) 07/21/19 Range/Units 11:00 WBC 12.9 H (3.8-10.6) k/uL Hgb 9.1 L (11.4-16.0) gm/dL Hct 29.0 L (34.0-46.0) % MCV 72.7 L (80.0-100.0) fL MCH 22.9 L (25.0-35.0) pg RDW 17.3 H (11.5-15.5) % Neutrophils # (Manual) 9.93 H (1.3-7.7) k/uL Monocytes # (Manual) 1.55 H (0-1.0) k/uL Assessment and Plan (1) Term Current Visit: Yes Status: Acute Code(s): Z34.90 - ENCNTR FOR SUPRVSN OF NORMAL , UNSP, UNSP TRIMESTER SNOMED Code(s): 04360648 (2) Active labor Current Visit: Yes Status: Acute Code(s): RZQ6067 - SNOMED Code(s): 088922260 Plan: Patient is admitted to labor and delivery amniotomy when appropriate, Pitocin augmentation of labor and if necessary is discussed with the patient. Anticipate spontaneous vaginal delivery. Epidural and Stadol discussed with the patient has a analgesic option during labor.
[2019-07-21] MEDS ORDERED: WITCH HAZEL 1 EACH MED..PAD TOPICAL PRN (19:54)
[2019-07-21] MEDS ORDERED: HYDROcodone/APAP 5-325MG 1 EACH TAB PO PRN (19:54)
[2019-07-21] MEDS ORDERED: diphenhydrAMINE 50 MG/ML 1 ML VIAL IVP PRN ×2 (19:54)
[2019-07-21] MEDS ORDERED: HYDROCORTISONE 2.5% RECTAL CREAM 30 GM TUBE RECTAL PRN (19:54)
[2019-07-21] MEDS ORDERED: diphenhydrAMINE 50 MG CAP PO PRN (19:54)
[2019-07-21] MEDS ORDERED: LANOLIN CREAM 5 GM TUBE TOPICAL PRN (19:54)
[2019-07-21] MEDS ORDERED: ACETAMINOPHEN TAB 325 MG TAB PO PRN (19:54)
[2019-07-21] MEDS ORDERED: diphenhydrAMINE 25 MG CAP PO PRN (19:54)
[2019-07-21] MEDS ORDERED: SIMETHICONE 80 MG CHEWABLE PO PRN (19:54)
[2019-07-21] MEDS ORDERED: HYDROcodone/APAP 7.5-325MG 1 EACH TAB PO PRN (19:54)
[2019-07-21] MEDS ORDERED: ZOLPIDEM 5 MG TAB PO PRN (19:54)
[2019-07-21] MEDS ORDERED: BENZOCAINE/MENTHOL SPRAY 1 GM/SPRAY AEROSOL TOPICAL PRN (19:54)
--- NOTE | 2019-07-21 19:57 | P.PROBDLV ---
Vaginal Delivery Note - . Vaginal Delivery Note: The patient is a 23-year-old 1 para 0 who is admitted in early labor with all signs reassuring at 38-5/7 weeks as established by good dating parameters. She is admitted after an uncomplicated though she is Rh- and received RhoGAM at 28 weeks. Group B strep status is negative. On labor and delivery, she had artificial rupture of membranes carried out and Pitocin augmentation started. She had an epidural catheter placed for analgesia. She made steady progress to the active phase of labor to complete and then pushed for approximately 25 minutes to a normal spontaneous vaginal delivery of a viable 8 lbs. 2 oz. baby boy with Apgars of 9 at 1 minute and 9 at 5 minutes delivered in the left occiput anterior position. The placenta was delivered spontaneously, intact, and grossly normal with a grossly normal three-vessel cord inserted approximately 3 cm from the margin of the placental disc. There was a second-degree midline perineal laceration noted which was repaired in standard fashion using 3-0 chromic catgut without difficulty. Estimated blood loss for the entire case was approximately 200 mL. There were no compilations. All sponge, instrument, and needle counts were correct. Both mother and infant are resting comfortably in recovery.
[2019-07-21] MEDS ORDERED: OXYTOCIN 20 UNITS/1000 ML NS 1,000 ML IV SCH (20:00)
[2019-07-21] MEDS: SENNOSIDES-DOCUSATE SODIUM 1 EACH TAB PO SCH (21:03)
[2019-07-21] MEDS: IBUPROFEN 600 MG TAB PO PRN (23:48)
[2019-07-21] MEDS ORDERED: Rhogam IMMUNE GLOBULIN 1,500 UNIT/1 ML IM ONE (23:53)
[2019-07-22 07:27] LABS: Anisocytosis Slight; Basophils % (A) 0 %; Eosinophils # (A) 0.1 k/uL (0-0.7); Eosinophils % (A) 1 %; HCT 24.8 % (34.0-46.0); HGB 7.8 gm/dL (11.4-16.0); Hypochromasia Marked; Lymphocytes # (A) 1.7 k/uL (1.0-4.8); Lymphocytes % (A) 11 %; MCHC 31.3 g/dL (31.0-37.0); MCV 73.4 fL (80.0-100.0); Microcytosis Moderate; Monocytes # (A) 0.8 k/uL (0-1.0); Monocytes % (A) 5 %; Neutrophils # (A) 12.3 k/uL (1.3-7.7); Neutrophils % (A) 82 %; Platelet Count 299 k/uL (150-450); Poikilocytosis Moderate; RBC 3.38 m/uL (3.80-5.40)
[2019-07-22] MEDS: SENNOSIDES-DOCUSATE SODIUM 1 EACH TAB PO SCH ×2 (08:07→20:15)
--- NOTE | 2019-07-22 11:13 | P.PNOBGVD ---
Subjective - Subjective Patient reports: Reports appetite normal, Reports voiding normally, Reports pain well controlled, Reports ambulating normally : doing well Objective - Latest Vital Signs Latest vital signs: Vital Signs Temp Pulse Resp BP Pulse Ox 07/22/19 08:00 98.1 F 90 16 116/61 07/22/19 03:58 99.0 F 89 14 112/75 97 07/22/19 00:00 99.0 F 96 16 117/64 97 07/21/19 21:40 98.2 F 105 H 18 119/69 07/21/19 21:10 111 H 18 122/77 07/21/19 20:39 98.2 F 109 H 18 106/58 07/21/19 20:25 96 18 109/58 07/21/19 20:09 96 18 119/61 07/21/19 19:55 99 18 114/60 07/21/19 19:40 98.6 F 109 H 18 118/59 07/21/19 11:14 96.3 F L 114 H 18 132/80 98 Intake and Output 07/21/19 07/22/19 07/22/19 22:59 06:59 14:59 Intake Total 2300 Balance 2300 Intake: Intake, IV Titration 2300 Amount Lactated Ringers 1,000 ml 1300 @ 125 mls/hr IV .Q8H BONI Rx#:[id number] Oxytocin 20 Units/1000 ml 1000 Ns 1,000 ml @ Per Protocol IV .Q0M BONI Rx#: [id number] Other: # Voids 1 - Exam Extremities: Present: normal Abdomen: Present: normal appearance, soft Uterus: Present: normal, firm (The uterine fundus is tonic and nontender below the umbilicus.) - Labs Labs: Abnormal Lab Results - Last 24 Hours (Table) 07/21/19 07/22/19 Range/Units 11:00 06:41 WBC 12.9 H 15.0 H (3.8-10.6) k/uL RBC 3.38 L (3.80-5.40) m/uL Hgb 9.1 L 7.8 L (11.4-16.0) gm/dL Hct 29.0 L 24.8 L (34.0-46.0) % MCV 72.7 L 73.4 L (80.0-100.0) fL MCH 22.9 L 23.0 L (25.0-35.0) pg RDW 17.3 H 17.0 H (11.5-15.5) % Neutrophils # 12.3 H (1.3-7.7) k/uL Neutrophils # (Manual) 9.93 H (1.3-7.7) k/uL Monocytes # (Manual) 1.55 H (0-1.0) k/uL Assessment and Plan (1) Normal spontaneous vaginal delivery Current Visit: Yes Status: Acute Code(s): O80 - ENCOUNTER FOR FULL-TERM UNCOMPLICATED DELIVERY SNOMED Code(s): 73058691 Plan: Continue routine care. I would anticipate home tomorrow pending no c omplications.
[2019-07-22] MEDS: IBUPROFEN 600 MG TAB PO PRN (16:38)
[2019-07-23 00:26] VITALS: PULSE 92
[2019-07-23] MEDS: SENNOSIDES-DOCUSATE SODIUM 1 EACH TAB PO SCH (08:17)
[2019-07-23 08:21] VITALS: BP 116/65; RESP 16; TEMP 98.1
--- NOTE | 2019-07-23 11:41 | P.DS ---
Providers Date of admission: 07/21/19 10:57 Expected date of discharge: 07/23/19 Attending physician: Audrey Ko Primary care physician: Stated None - Discharge Diagnosis(es) (1) Normal spontaneous vaginal delivery Current Visit: Yes Status: Acute Hospital Course: The patient is a 23-year-old 1 para 0 admitted at 38-5/7 weeks of in early labor with all signs reassuring. Her has been uncomplicated and group B strep status is negative. She was admitted for active management of labor and underwent artificial rupture of membranes for clear fluid. Pitocin augmentation was started and she had an epidural catheter placed for analgesia. She made steady progress to complete and pushed to a normal spontaneous vaginal delivery of a viable 8 lbs. 2 oz. baby boy with Apgars of 9 at 1 minute and 9 at 5 minutes. Her course was unremarkable vital with vital signs being stable and her temperature was afebrile throughout. She was deemed stable for discharge on postoperative day #2 was discharged home to follow-up in the office in 6 weeks' time routinely. She is, however, moving to [place] as of the end of next week and will require follow-up at her new location. Discharge instructions included calling for any significantly increased bleeding or foul-smelling lochia, significantly increased fever abdominal pain, perineal complaints, breast complaints, or anything else that concerned her. She was additionally instructed to have nothing in the vagina for at least 6 weeks time to include intercourse. She understood her instructions and agrees to follow up as noted above. Discharge medications included only [id number] analgesic pain medications as well as continued vitamins as she has opted to breast-feed. Maternal blood type is B- and cord blood was sent for evaluation for the necessity of RhoGAM prior to discharge. Rubella status is immune. Procedures: #1. Artificial rupture of membranes #2. Pitocin augmentation #3. Epidural analgesia #4. Normal spontaneous vaginal delivery #5. Repair of perineal laceration Patient Condition at Discharge: Good Plan - Discharge Summary New Discharge Prescriptions: No Action Albuterol Inhaler [Ventolin Hfa Inhaler] 1 - 2 puff INHALATION RT-Q6H PRN PRN Reason: Wheezing Loratadine [Claritin] 10 mg PO DAILY Discharge Medication List Albuterol Inhaler [Ventolin Hfa Inhaler] 1 - 2 puff INHALATION RT-Q6H PRN 05/15/19 [History] Loratadine [Claritin] 10 mg PO DAILY 06/18/19 [History] Follow up Appointment(s)/Referral(s): Audrey Ko DO [Doctor of Osteopathic Medicine] - 6 Weeks Discharge Disposition: HOME SELF-CARE
== END 2019-07-23 12:45 | disposition home or self-care (01) | DRG 807 ==
LOC: FBPOP 10:26 → 4FBP 10:57
PROVIDERS: ADMIT Obstetrics & Gynecology Obstetrics; ATTEND Obstetrics & Gynecology Obstetrics
PROC: 10E0XZZ Delivery of Products of Conception, External Approach (ICD-10-PCS; principal; 2019-07-21)
PROC: 0KQM0ZZ Repair Perineum Muscle, Open Approach (ICD-10-PCS; 2019-07-21)
PROC: 00HU33Z Insertion of Infusion Device into Spinal Canal, Percutaneous Approach (ICD-10-PCS; 2019-07-21)
PROC: 3E0R3BZ Introduction of Anesthetic Agent into Spinal Canal, Percutaneous Approach (ICD-10-PCS; 2019-07-21)
PROC: 3E0234Z Introduction of Serum, Toxoid and Vaccine into Muscle, Percutaneous Approach (ICD-10-PCS; 2019-07-21)
DX: O70.1 Second degree perineal laceration during delivery (principal); Z37.0 Single live birth; O26.893 Other specified pregnancy related conditions, third trimester; Z67.21 Type B blood, Rh negative; Z3A.38 38 weeks gestation of pregnancy; Z79.899 Other long term (current) drug therapy; Z88.8 Allergy status to other drugs, medicaments and biological substances; Z80.8 Family history of malignant neoplasm of other organs or systems
CPT/HCPCS: 59025; 85025; 85461; 86850; 86870; 86880; 86900; 86901